=== PATIENT | female | born 1995 | race Caucasian/White ===

== ENCOUNTER 2017-09-20 14:19 | Emergency (ER) | payer MEDICAID, SELFPAY | END 2017-09-20 16:42 | disposition left against medical advice (07) | PROVIDERS: Emergency Provider Nurse Practitioner Family; Family Provider Physician Assistant; PCP Physician Assistant | DX: Z53.29 Procedure and treatment not carried out because of patient's decision for other reasons (principal) ==

== ENCOUNTER 2017-09-24 18:45 | Emergency (ER) | payer MEDICAID, SELFPAY ==
[2017-09-24 19:41] VITALS: BP 138/87; PULSE 81; RESP 20; TEMP 37; O2SAT 97; BMI 49.8
--- NOTE | 2017-09-24 20:00 | HMH.EDUTC ---
[facility] [place] Clinical Impression: Upper respiratory infection Qualifiers: URI type: unspecified URI Qualified Code(s): J06.9 - Acute upper respiratory infection, unspecified Disposition: Home, Self-Care Condition on Discharge: Good Instructions: Cough, Sinus Headache, DI for Headache Additional Instructions: * Monitor Temp. Tylenol and/or Ibuprofen as needed. ER if fever is no less than 101 despite alternating Tylenol and Ibuprofen * Encourage fluids, water, Gatorade, powerade, pedialyte if infant/toddler/or child * Warm salt water gargles for throat irritation *Warm fluids *Sore throat lozenges *Sleep elevated *humidifier or vaporizer Lots of rest Increase fluids, water, Gatorade, powerade Follow up IMMEDIATELY for new or worsening of symptoms OR no noticeable improvement over the next 48-72 hours. 911 immediately for any life threatening symptoms such as chest pain or difficulty breathing Prescriptions: Dextromethorphan Polistirex [Delsym] 10 ml PO Q12H PRN #200 joe.er.12h PRN Reason: Cough Referrals: Vonda Gonsalves PA [Primary Care Provider] - Time of Disposition: 20:17 Medical Decision Making Vital Signs: 09/24/17 19:41 Temperature 98.6 F Temperature Source Temporal Artery Scan Pulse Rate [Left Brachial] 81 Respiratory Rate 20 Blood Pressure [Left Arm] 138/87 Blood Pressure Mean [Left Arm] 104 Blood Pressure Source [Left Arm] Automatic Cuff Blood Pressure Position [Left Arm] Sitting 02 Sat by Pulse Oximetry 97 Oxygen Delivery Method Room Air - Yonathan Inquiry Pt receiving controlled substance: No Yonathan was queried for this patient: No [facility] [place] - General Stated complaint: CARR Mode of Arrival: Ambulatory Source of Information: Patient Limitations: No Limitations Description of Symptoms (Recalled from Triage Doc. by RN): C/O COUGH, CARR. DENIES ANY OTHER SYMPTOMS HEENT Symptoms (Recalled from RN notes): Yes (CARR) Resp Symptoms (Recalled from RN notes): Yes (COUGH) Skin Symptoms (Recalled from RN notes): No MS Symptoms (Recalled from RN notes): No Functional Status (Recalled from RN notes): N/A - History of Present Illness Provider Complaint: Patient state that she has been having sinus pain and pressure State that she has had a bad cough and when she coughs it makes her head hurt States that when she bend over her head hurts worse also and thinks she may have a sinus infection - Related Data Previous Rx's Medication Instructions Recorded Dextromethorphan Polistirex 10 ml PO Q12H PRN #200 joe.er.12h 09/24/17 [Delsym] Allergies Allergy/AdvReac Type Severity Reaction Status Date / Time labetalol [LABETALOL] Allergy Unknown I-ITCHING Verified 09/24/17 19:45 - Worker's Comp Is this a Worker's Comp case?: No [facility] History I have reviewed the patient's past medical history: Yes Medical History: Denies:: Cancer, Diabetes Mellitus Type 1, Diabetes Mellitus Type 2, MRSA Amputation: No Fractures: No - *Social History Smoking Status: Current every day smoker Tobacco Type: cigarettes Alcohol Intake: never - Psychiatric History Expresses thoughts of harming self/others: None Suicide Plan Description: No Plan ROS Obtained: Yes All systems reviewed & no additional complaints - Constitutional Constitutional: Reports fever(s) - ENT Ears, Nose, Mouth, and Throat: Reports sinus pain, Reports sinus pressure - Respiratory Respiratory: Yes cough Physical Exam - General General appearance: alert, in no apparent distress - Expanded ENT Exam Nose exam: Present: sinus tenderness - Respiratory Respiratory exam: Present: normal lung sounds bilaterally. Absent: respiratory distress - Cardiovascular Cardiovascular exam: Present: regular rate, normal rhythm. Absent: JVD - Neurological Exam Neurological exam: Present: alert, oriented X3
== END 2017-09-24 20:52 | disposition home or self-care (01) ==
PROVIDERS: Emergency Provider Nurse Practitioner; Family Provider Physician Assistant; PCP Physician Assistant
DX: J06.9 Acute upper respiratory infection, unspecified (principal); F17.210 Nicotine dependence, cigarettes, uncomplicated; Z88.8 Allergy status to other drugs, medicaments and biological substances
CPT/HCPCS: 96372; 99202

== ENCOUNTER → 2017-12-31 15:26 | Outpatient (REF) | payer MEDICAID, SELFPAY ==
[2017-12-31 18:32] LABS: Basophils % 0.4 % (0.1-2.0); Eosinophils # 0.1 K/mm3 (0.0-0.4); Hematocrit 43.6 % (37.0-47.0); Hemoglobin 14.2 g/dL (12.2-16.2); Lymphocytes # 2.1 K/mm3 (0.7-4.5); Lymphocytes % 29.9 K/mm3 (10-50); Mean Corpuscular HGB Conc 32.7 g/dL (31.8-35.4); Mean Corpuscular Volume 85.9 fl (81-99); Mean Platelet Volume 9.1 fl (7.4-10.4); Monocytes # 0.6 K/mm3 (0.1-1.0); Monocytes % 7.7 % (1.7-9.3); Neutrophils # 4.2 K/mm3 (1.8-7.8); Platelet Count 237 K/mm3 (142-424); Red Blood Count 5.08 M/mm3 (4.20-5.40); Red Cell Distribution Width 12.5 % (11.5-17.5); White Blood Count 7.1 K/mm3 (4.8-10.8)
[2017-12-31 19:17] LABS: Hemoglobin A1C 5.5 % (0.0-7.0)
[2017-12-31 19:31] LABS: Alanine Aminotransferase 22 U/L (12-78); Albumin Level 3.5 gm/dL (3.4-5.0); Alkaline Phosphatase 115 U/L (46-116); Anion Gap 15.2 mEq/L (5-15); Aspartate Amino Transferase 14 U/L (15-37); Bilirubin,Total 0.2 mg/dL (0.2-1.0); Blood Urea Nitrogen 11 mg/dL (7-18); Calcium 8.9 mg/dL (8.5-10.1); Carbon Dioxide 23 mmol/L (21.0-32.0); Chloride 104 mmol/L (98-107); Chol/HDL Ratio 4.7 (1-3.5); Cholesterol 169 mg/dL (140-200); Creatinine,Serum 0.58 mg/dL (0.55-1.02); Estimated Glomerular Filt Rate 131 ml/min (>60); GFR (African American) 159 ML/MIN (>60); Globulin 3.5 gm/dl (1.3-3.2); Glucose 94 mg/dL (74-106); HDL Cholesterol 36 mg/dL (29-89); LDL Cholesterol 119 mg/dL (0-130); Potassium 4.2 mmoL/L (3.5-5.1); Sodium 138 mmol/L (136-145); T4 (Thyroxine) 9.4 ug/dl (4.7-13.3); Thyroid Stimulating Hormone 0.96 uIU/ml (0.358-3.740); Triglycerides 68 mg/dL (30-200); VLDL Cholesterol 14 mg/dL (0-40)
[2018-01-02 11:03] LABS: Vitamin D 25 Hydroxy 10.4 ng/mL (30.0-100.0)
== END ==
LOC: LAB 15:26
PROVIDERS: Visit Provider Physician Assistant
DX: R53.83 Other fatigue (principal); Z83.3 Family history of diabetes mellitus
CPT/HCPCS: 80053; 80061; 82652; 83036; 84436; 84443; 85025

== ENCOUNTER → 2018-05-28 08:58 | Outpatient (CLI) | payer MEDICAID, SELFPAY ==
--- NOTE | 2018-05-28 09:02 | XR_ITS ---
XR foot wt bearing LT 3V HISTORY: ITS.REASON: pain ORDERING PHYSICIAN: Nakia Loving DPM PATIENT AGE: 22 years COMPARISON: None FINDINGS: No fracture or dislocation. No lytic or blastic change. There is normal mineralization.. The joint spaces are well-preserved. No significant degenerative/arthritic changes. No erosive changes evident. IMPRESSION: Negative, no acute finding
--- NOTE | 2018-05-28 09:02 | XR_ITS ---
XR foot wt bearing RT 3V HISTORY: ITS.REASON: pain ORDERING PHYSICIAN: Nakia Loving DPM PATIENT AGE: 22 years COMPARISON: None FINDINGS: No fracture or dislocation. No lytic or blastic change. There is normal mineralization.. The joint spaces are well-preserved. No significant degenerative/arthritic changes. No erosive changes evident. A 5 mm rectangular-shaped density is noted within the soft tissues along the lateral dorsal aspect of the calcaneus as seen on the oblique view but not really identified on the additional views and may be due to foreign body. The AP view there is a lucency noted along the neck of the talus at 4 mm also not identified on the additional views. IMPRESSION: 1. Soft tissue density along the dorsal and lateral aspect of the calcaneus suggesting foreign body not readily apparent on additional views. 2. Lucency overlying the mid aspect of the talus suggesting a benign-appearing cyst
[2018-05-28 11:28] LABS: Basophils % 0.3 % (0.1-2.0); Eosinophils # 0.1 K/mm3 (0.0-0.4); Hematocrit 42.5 % (37.0-47.0); Lymphocytes # 1.9 K/mm3 (0.7-4.5); Lymphocytes % 27.1 K/mm3 (10-50); Mean Corpuscular HGB Conc 32.9 g/dL (31.8-35.4); Mean Corpuscular Hemoglobin 27.7 pg (27.0-31.2); Mean Corpuscular Volume 84.1 fl (81-99); Mean Platelet Volume 7.7 fl (7.4-10.4); Monocytes # 0.4 K/mm3 (0.1-1.0); Monocytes % 5.3 % (1.7-9.3); Neutrophils # 4.5 K/mm3 (1.8-7.8); Neutrophils % 65.3 % (37.0-80.0); Platelet Count 225 K/mm3 (142-424); Red Blood Count 5.05 M/mm3 (4.20-5.40); Red Cell Distribution Width 13.2 % (11.5-17.5); White Blood Count 6.9 K/mm3 (4.8-10.8)
[2018-05-28 12:24] LABS: Alanine Aminotransferase 26 U/L (12-78); Albumin Level 3.5 gm/dL (3.4-5.0); Albumin/Globulin Ratio 1.1 (1.1-1.8); Alkaline Phosphatase 109 U/L (46-116); Anion Gap 11.4 mEq/L (5-15); Aspartate Amino Transferase 13 U/L (15-37); Bilirubin,Total 0.3 mg/dL (0.2-1.0); Blood Urea Nitrogen 11 mg/dL (7-18); Calcium 8.5 mg/dL (8.5-10.1); Carbon Dioxide 28 mmol/L (21.0-32.0); Chloride 106 mmol/L (98-107); Chol/HDL Ratio 4.4 (1-3.5); Cholesterol 160 mg/dL (140-200); Creatinine,Serum 0.62 mg/dL (0.55-1.02); Estimated Glomerular Filt Rate 122 ml/min (>60); GFR (African American) 147 ML/MIN (>60); Globulin 3.3 gm/dl (1.3-3.2); Glucose 93 mg/dL (74-106); HDL Cholesterol 36 mg/dL (29-89); LDL Cholesterol 109 mg/dL (0-130); Potassium 4.4 mmoL/L (3.5-5.1); Sodium 141 mmol/L (136-145); T4 (Thyroxine) 8.9 ug/dl (4.7-13.3); Thyroid Stimulating Hormone 1.05 uIU/ml (0.358-3.740); Total Protein,Serum 6.8 gm/dL (6.4-8.2); Triglycerides 73 mg/dL (30-200); VLDL Cholesterol 15 mg/dL (0-40)
[2018-05-31 23:06] LABS: 1,25-Dihydroxy, Vitamin D-2 <10 pg/mL (.)
[2018-06-01 05:22] LABS: Vitamin B12 325 pg/mL (232-1245)
[2018-06-01 05:25] LABS: 1,25 Dihydroxy Vitamin D 37 pg/mL (.); 1,25-Dihydroxy, Vitamin D-3 34 pg/mL (.)
== END ==
PROVIDERS: Nurse Practitioner Family; PCP Emergency Medicine; Visit Provider Podiatrist
DX: M79.672 Pain in left foot (principal); M79.671 Pain in right foot; R53.83 Other fatigue
CPT/HCPCS: 36415; 73630; 80053; 80061; 82607; 82652; 84436; 84443; 85025

== ENCOUNTER → 2019-10-08 13:45 | Outpatient (CLI) | payer MEDICAID, SELFPAY ==
[2019-10-08 15:12] LABS: HCG Qualitative, Serum Positive (Negative)
== END ==
PROVIDERS: Visit Provider Nurse Practitioner Family
DX: N92.6 Irregular menstruation, unspecified (principal)
CPT/HCPCS: 36415; 84703

== ENCOUNTER → 2019-11-03 14:33 | Outpatient (CLI) | payer MEDICAID, SELFPAY ==
[2019-11-03 16:49] LABS: Basophils % 0.2 % (0.1-2.0); Eosinophils # 0.1 K/mm3 (0.0-0.4); Eosinophils % 0.5 % (0.1-12.0); Hematocrit 38.7 % (37.0-47.0); Hemoglobin 12.6 g/dL (12.2-16.2); Lymphocytes # 1.6 K/mm3 (0.7-4.5); Lymphocytes % 16.3 % (10-50); Mean Corpuscular HGB Conc 32.5 g/dL (31.8-35.4); Mean Corpuscular Hemoglobin 28.4 pg (27.0-31.2); Mean Corpuscular Volume 87.2 fl (81-99); Mean Platelet Volume 8.7 fl (7.4-10.4); Monocytes # 0.4 K/mm3 (0.1-1.0); Monocytes % 4.4 % (1.7-9.3); Neutrophils # 7.5 K/mm3 (1.8-7.8); Neutrophils % 78.6 % (37.0-80.0); Platelet Count 213 K/mm3 (142-424); Red Blood Count 4.44 M/mm3 (4.20-5.40); Red Cell Distribution Width 13.1 % (11.5-17.5); White Blood Count 9.5 K/mm3 (4.8-10.8)
[2019-11-05 06:51] LABS: HIV Screen 4th Generation wRfx Non Reactive (Non Reactive)
[2019-11-05 10:36] LABS: Hepatitis B Surface Antigen Negative (Negative); Hepatitis C Antibody <0.1 s/co ratio (0.0-0.9); Rubella Antibodies, IgG 2.04 index (Immune >0.99)
[2019-11-05 12:02] LABS: Rapid Plasma Reagin Ab Titer Non Reactive (NonRea<1:1)
== END ==
PROVIDERS: Visit Provider Nurse Practitioner Obstetrics & Gynecology
DX: Z34.90 Encounter for supervision of normal pregnancy, unspecified, unspecified trimester (principal)
CPT/HCPCS: 36415; 85025; 86592; 86703; 86762; 86850; 87340; 87380; G0432

== ENCOUNTER → 2019-11-05 12:37 | Outpatient (CLI) | payer MEDICAID, SELFPAY ==
--- NOTE | 2019-11-05 12:38 | US_ITS ---
PROCEDURE: US OB TRANSVAGINAL CLINICAL INDICATION: Dates before 12 weeks COMPARISON: No exams were available for comparison FINDINGS: An intrauterine gestational sac is present with a pole with a crown-rump length of 2.14cm correlating to gestational age of 8 weeks 6 days. heart tones are present with an FHR of 167bpm. Yolk sac is noted. Ovaries are within normal limits. IMPRESSION: Living intrauterine gestation at 8 weeks 6 days Estimated due date by Ultrasound is 06/15/2020 Dictated by: Donald Porter 11/05/2019 15:28 Electronically signed by Donald Porter in OV 11/05/2019 15:28
== END ==
PROVIDERS: PCP Nurse Practitioner Family; Visit Provider Nurse Practitioner Obstetrics & Gynecology
DX: O26.841 Uterine size-date discrepancy, first trimester (principal)
CPT/HCPCS: 76817

== ENCOUNTER 2020-03-28 18:46 | Emergency (ER) | payer MEDICAID, SELFPAY ==
[2020-03-28 18:55] VITALS: BP 110/98; PULSE 101; RESP 18; O2SAT 96; BMI 56.5
[2020-03-28 19:17] VITALS: BP 110/98; PULSE 101; RESP 18; TEMP 36.7; O2SAT 96; BMI 56.6
--- NOTE | 2020-03-28 19:31 | HMH.EDUTC ---
[facility] [place] Disposition Clinical Impression: Strep throat, Viral syndrome Disposition: Home, Self-Care Condition on Discharge: Good Instructions: Strep Throat, DI for Strep Throat Additional Instructions: Drink plenty of fluids. Take tylenol or ibuprofen for pain or fever. Take the medications as directed. Follow up with your regular doctor. GO TO THE ER FOR ANY WORSENING SYMPTOMS Referrals: Brielle Huggisn APRN [Primary Care Provider] - Forms: Work/School Release Time of Disposition: 19:55 Medical Decision Making - Medical Records Medical records reviewed: No: I reviewed the patient's medical records. - Yonathan Inquiry Pt receiving controlled substance: No Vital Signs: 03/28/20 18:55 03/28/20 19:17 03/28/20 19:56 Temperature 98.1 F 98.1 F Temperature Source Oral Pulse Rate 101 H Pulse Rate [Radial] 101 H 101 H Respiratory Rate 18 18 18 Blood Pressure 110/98 H Blood Pressure [Right Arm] 110/98 H 110/98 H Blood Pressure Mean [Right Arm] 102 102 Blood Pressure Source [Right Arm] Automatic Cuff Automatic Cuff Blood Pressure Position [Right Arm] Sitting Sitting 02 Sat by Pulse Oximetry 96 96 Oxygen Delivery Method Room Air Room Air Orders (Tests/Meds): ORDERS Category Date Time Status SARS-CoV-2, DAVID Stat Lab 03/28/20 19:45 Received [facility] [place] HPI - General Stated complaint: 29 wk preg sore throat,cough. Time Seen by Provider: 03/28/20 19:31 Mode of Arrival: Ambulatory Source of Information: Patient Limitations: No Limitations Description of Symptoms (Recalled from Triage Doc. by RN): States she was seen yesterday at [facility] and was diagnosed with Strep. States that her side is sore from coughing and she has a headache. Patient is 29 weeks . was prescribed PCN HEENT Symptoms (Recalled from RN notes): Yes Resp Symptoms (Recalled from RN notes): Yes Skin Symptoms (Recalled from RN notes): No MS Symptoms (Recalled from RN notes): No Functional Status (Recalled from RN notes): WNL - History of Present Illness Provider Complaint: She states that she was diagnosed with strep throat yesterday at [facility]. She was started on oral pcn. She states that she started her medicine yesterday evening, but she is not feeling any better yet. She is also having nausea and a cough. - Related Data Home Medications Medication Instructions Recorded Confirmed prenat.vits,janiya,dvv-shax-oiydh 1 tab PO DAILY 11/03/19 03/28/20 Buspirone HCl [Buspar 10mg 10 mg PO BID 03/28/20 03/28/20 tablet] Penicillin V Potassium 500 mg PO TID 03/28/20 03/28/20 Allergies Allergy/AdvReac Type Severity Reaction Status Date / Time labetalol [LABETALOL] Allergy Unknown I-ITCHING Verified 12/01/19 14:13 - Worker's Comp Is this a Worker's Comp case?: No [facility] History - Hepatitis A Screen Drug use history?: No High risk sexual behaviors?: No History of sexually transmitted infection?: No Currently employed?: No Childcare worker?: No Do you have indoor plumbing?: Yes Do you have electricity?: Yes Attestation statement:: This patient has been screened for Hepatitis A risk factors. I have reviewed the patient's past medical history: Yes Medical History: Reports:: Anxiety, Depression Denies:: Cancer, Diabetes Mellitus Type 1, Diabetes Mellitus Type 2, MRSA Comment: Declines influenza vaccination. Other Surgeries: Yes: No Previous Surgery, Amputation: No Fractures: No - Social History Smoking Status: Current every day smoker Tobacco Type: cigarettes # Packs/Day (cigarettes): 1 Alcohol Intake: never Alcohol Intake Frequency:: other Substance Use Type: denies use Occupational Status: other Housing: apartment Household Members: children - Psychiatric History Pschychiatric History:: Reports:: Anxiety, Depression Family Hx:: Cancer, Diabetes ROS Obtained: Yes All systems reviewed & no additional complaints - Constitutional Constitutional: Reports chil
[2020-03-28 19:56] VITALS: BP 110/98; PULSE 101; RESP 18; TEMP 36.7; O2SAT 96
[2020-03-30 14:42] LABS: Covid-19 Nasal PCR Sendout Lex Not Detected
== END 2020-03-28 20:01 | disposition home or self-care (01) ==
PROVIDERS: Emergency Provider Nurse Practitioner Family; PCP Nurse Practitioner Family
DX: J02.0 Streptococcal pharyngitis (principal); B34.9 Viral infection, unspecified; Z3A.29 29 weeks gestation of pregnancy; F17.210 Nicotine dependence, cigarettes, uncomplicated; F41.8 Other specified anxiety disorders; Z88.8 Allergy status to other drugs, medicaments and biological substances
CPT/HCPCS: 99201; U0004

== ENCOUNTER → 2020-04-13 10:46 | Outpatient (CLI) | payer MEDICAID, SELFPAY ==
[2020-04-18 09:17] LABS: QuantiFERON-TB Gold Plus Negative (Negative)
== END ==
PROVIDERS: Visit Provider Student in an Organized Health Care Education/Training Program
DX: O09.90 Supervision of high risk pregnancy, unspecified, unspecified trimester (principal)
CPT/HCPCS: 36415; 86480

== ENCOUNTER → 2021-02-09 10:51 | Outpatient (CLI) | payer MEDICAID, SELFPAY ==
--- NOTE | 2021-02-09 10:55 | CA_ITS ---
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: Anushka Rodriguez RVT Ht: 5 ft 5 in Wt: 342lbs BSA: 2.48 BP: 163/101 mmHg Indications: SOA,ABN EKG,SMOKER,OBESITY,PALPS,TACHY TDS-PT BODY HABITUS 2D Dimensions LVOT 2.02 cm (M/F) 1.5-2.5 LA Volume 23.10 mL LA Volume Index 9.31 mL/m2 (M/F) 16-34 M-Mode Dimensions RVDd 2.41 cm (0.9-2.6) LA Diam 4.10 cm (1.9-4.0) LVDd 5.12 cm (3.5-5.7) Ao Diam 2.86 cm (2.0-3.7) LVDs 3.21 cm (3.5-5.7) IVSd 1.00 cm (0.6-1.1) PWd 0.64 cm (0.6-1.1) EF (Teich) 66.90% FS 37.30% EDV (Teich) 124.90 mL TAPSE 1.84 (<1.7) ESV (Teich) 41.30 mL LV Diastology E Decel Time 150.00 (160-240 msec) E/A Ratio 1.8 MED E' 10.20 (< 7 cm/sec) E'/MED E' Ratio 8.33 (>14) LAT E' 16.20 (<10 cm/sec) E/LAT E' Ratio 5.25 (>14) Aortic Valve AO Peak GR. 6.30 mmHg Mitral Valve MV E Max Loki. 85.00 (40-130 cm/s) MV A Velocity 48.00 (40-130 cm/s) E/A Ratio 1.76 MV Decel. Time 150.00 (160-240 ms) MV PHT 44.00 ms Pulmonary Valve PV Peak Velocity 88.00 (50-150 cm/s) Tricuspid Valve TR P. Velocity 175.00 cm/s RAP Estimate 10.00 mmHg RVSP 22.30 mmHg Left Ventricle Left atrium is normal size, left ventricle is normal size, there is no concentric left ventricular hypertrophy, visually estimated ejection fraction 55% with no regional wall motion abnormality, diastolic parameters are within normal range. Right Ventricle Right atrium and right ventricle are normal size and contractility. Aortic Valve Aortic valve is normal, there is no aortic stenosis or aortic insufficiency. Mitral Valve Mitral valve grossly normal, there is no mitral regurgitation. Tricuspid Valve Tricuspid grossly normal, there is trace tricuspid regurgitation, tricuspid regurgitation jet velocity is inadequate for calculation of the right ventricular systolic pressure. Pulmonic Valve Pulmonic valve is poorly visualized. Great Vessels Aortic root is normal size. Pericardium No significant pericardial effusion noted. Conclusion 1. Normal left ventricular size, preserved left ventricular systolic function, visually estimated ejection fraction 55% with no regional wall motion abnormality, diastolic parameters are within normal range. 2. Trace tricuspid regurgitation. 3. No significant pericardial effusion noted. Electronically signed by : Anirudh Crabtree, 02/09/2021 14:39:38
== END ==
PROVIDERS: PCP Nurse Practitioner Family; Visit Provider Internal Medicine Cardiovascular Disease
DX: R00.2 Palpitations (principal); R00.0 Tachycardia, unspecified; R94.31 Abnormal electrocardiogram [ECG] [EKG]; E66.01 Morbid (severe) obesity due to excess calories; F17.200 Nicotine dependence, unspecified, uncomplicated; R40.0 Somnolence; Z68.43 Body mass index [BMI] 50.0-59.9, adult
CPT/HCPCS: 93306

== ENCOUNTER → 2021-03-06 19:07 | Outpatient (CLI) | payer MEDICAID, SELFPAY | PROVIDERS: Visit Provider Nurse Practitioner Family | DX: Z20.822 Contact with and (suspected) exposure to COVID-19 (principal) | CPT/HCPCS: U0003 ==

== ENCOUNTER → 2021-04-17 21:01 | Outpatient (CLI) | payer MEDICAID, SELFPAY | PROVIDERS: Visit Provider Nurse Practitioner Family | DX: Z11.52 Encounter for screening for COVID-19 (principal) | CPT/HCPCS: U0003 ==

== ENCOUNTER → 2021-04-30 11:51 | Outpatient (CLI) | payer MEDICAID, SELFPAY | PROVIDERS: PCP Nurse Practitioner Family; Visit Provider Nurse Practitioner Family | DX: Z20.822 Contact with and (suspected) exposure to COVID-19 (principal) | CPT/HCPCS: U0003 ==

== ENCOUNTER → 2021-05-25 10:42 | Outpatient (CLI) | payer MEDICAID, SELFPAY | PROVIDERS: Visit Provider Nurse Practitioner Family | DX: Z20.822 Contact with and (suspected) exposure to COVID-19 (principal); J02.9 Acute pharyngitis, unspecified | CPT/HCPCS: C9803; U0003; U0005 ==

== ENCOUNTER → 2021-07-13 17:26 | Outpatient (CLI) | payer MEDICAID, SELFPAY | PROVIDERS: PCP Nurse Practitioner Family; Visit Provider Internal Medicine Cardiovascular Disease | DX: R00.0 Tachycardia, unspecified (principal); R00.2 Palpitations; R94.31 Abnormal electrocardiogram [ECG] [EKG]; R40.0 Somnolence; E66.01 Morbid (severe) obesity due to excess calories; F17.200 Nicotine dependence, unspecified, uncomplicated; Z68.43 Body mass index [BMI] 50.0-59.9, adult | CPT/HCPCS: 95806 ==

== ENCOUNTER → 2021-09-09 17:15 | Outpatient (CLI) | payer MEDICAID, SELFPAY | PROVIDERS: PCP Nurse Practitioner Family; Visit Provider Nurse Practitioner Family | DX: Z20.822 Contact with and (suspected) exposure to COVID-19 (principal) | CPT/HCPCS: C9803; U0003; U0005 ==

== ENCOUNTER → 2021-09-12 14:38 | Outpatient (CLI) | payer MEDICAID, SELFPAY | PROVIDERS: Visit Provider Nurse Practitioner | DX: Z20.822 Contact with and (suspected) exposure to COVID-19 (principal) | CPT/HCPCS: C9803; U0003; U0005 ==

== ENCOUNTER → 2021-09-15 15:15 | Outpatient (CLI) | payer MEDICAID, SELFPAY | PROVIDERS: PCP Nurse Practitioner Family; Visit Provider Nurse Practitioner Family | DX: U07.1 COVID-19 (principal) | CPT/HCPCS: C9803; U0003; U0005 ==

== ENCOUNTER 2021-11-16 09:17 | Emergency (ER) | payer MEDICAID, SELFPAY ==
[2021-11-16 09:45] VITALS: BP 137/74; PULSE 82; RESP 18; TEMP 36.6; O2SAT 99; BMI 55.1
[2021-11-16 10:02] LABS: UTC Strep Screen (Rapid) Negative (Negative)
--- NOTE | 2021-11-16 10:14 | HMH.EDUTC ---
[facility] [place] Disposition Clinical Impression: Nausea & vomiting Qualifiers: Vomiting type: unspecified Qualified Code(s): R11.2 - Nausea with vomiting, unspecified Disposition: Home, Self-Care Condition on Discharge: Good Instructions: Sore Throat, DI for Vomiting -- Adult, Nausea and Vomiting-Adult Additional Instructions: *Monitor Temp, Over the counter Motrin or Tylenol as directed/as needed Tylenol every 4 hours and Motrin every 6 hours (as long as your family doctor has told you that you can take it) for fever or pain. and straight to ER if unable to lower temp less than 101.0 after medication given *Warm salt water gargles may help to soothe the throat *Throat Lozenges *Warm fluids like tea with honey may help to soothe the throat *Sleep elevated *Humidifier/Vaporizer *If you did not take Penicillin shot or was unable to, start taking antibiotic immediately and make sure that you take it for the FULL length of time although you should start to feel better in 24-48 hours *change toothbrush and toothpaste 24-48 hours after starting to take antibiotics so you do not reinfect yourself Monitor Temp. Tylenol and/or Ibuprofen as needed. ER if fever is no less than 101 despite alternating Tylenol and Ibuprofen * Encourage fluids, water, Gatorade, powerade, pedialyte if /toddler/or child *Cold fluids, popsicles and ice cream may feel good on his throat Follow up IMMEDIATELY for new or worsening symptoms or no Noticeable improvement over the next 48-72 hours. 911 for difficulty breathing or swallowing Prescriptions: Ondansetron [Zofran 4mg ODT] 4 mg PO TIDP PRN #6 tab PRN Reason: Vomiting Transmission Status: Pending to [id number] Referrals: Brielle Huggins APRN [Primary Care Provider] - As needed Time of Disposition: 10:44 Medical Decision Making - Yonathan Inquiry Pt receiving controlled substance: No Yonathan was queried for this patient: No Vital Signs: 11/16/21 09:45 Temperature 97.9 F Temperature Source Oral Pulse Rate [Right Brachial] 82 Respiratory Rate 18 Blood Pressure [Right Arm] 137/74 Blood Pressure Mean [Right Arm] 95 Blood Pressure Source [Right Arm] Automatic Cuff Blood Pressure Position [Right Arm] Sitting 02 Sat by Pulse Oximetry 99 Oxygen Delivery Method Room Air - Lab Data Lab results reviewed: Yes: I reviewed the patient's lab results. Lab Results 11/16/21 09:46: Strep Scn Rapid Clinic Negative 11/16/21 10:18: Tst Clinic Negative Orders (Tests/Meds): ORDERS Category Date Time Status Strep Screen Confirmation Stat Micro 11/16/21 09:46 Received [facility] [place] HPI - General Stated complaint: sore throat, vomiting Time Seen by Provider: 11/16/21 10:14 Mode of Arrival: Ambulatory Source of Information: Patient Limitations: No Limitations Description of Symptoms (Recalled from Triage Doc. by RN): PATIENT C/O SORE THROAT AND VOMITING HEENT Symptoms (Recalled from RN notes): Yes Resp Symptoms (Recalled from RN notes): No Skin Symptoms (Recalled from RN notes): No MS Symptoms (Recalled from RN notes): No Functional Status (Recalled from RN notes): WNL - History of Present Illness Provider Complaint: Patient state that she has been having sore throat and vomiting State that her kids and has had a stomach bug States that she was worried that she may have strep throat so she came in to get checked out - Related Data Home Medications Medication Instructions Recorded Confirmed levonorgestrel 20 mcg/24 hours (7 INTRAUTERI 05/25/21 09/13/21 yrs) 52 mg intrauterine device Previous Rx's Medication Instructions Recorded bisoprolol fumarate 5 mg tablet 5 mg PO DAILY #90 tab 07/05/21 fluoxetine 20 mg capsule 20 mg PO DAILY #30 cap 07/31/21 Ondansetron [Zofran 4mg ODT] 4 mg PO TIDP PRN #6 tab 11/16/21 Allergies Allergy/AdvReac Type Severity Reaction Status Date / Time labetalol [LABETALOL] Allergy Unknown I-ITCHING Verified 09/13/21 11:
[2021-11-16 10:24] LABS: UTC Pregnancy Test, Urine Negative (Negative)
[2021-11-16 10:49] VITALS: BP 137/74; PULSE 82; RESP 18; TEMP 36.6; O2SAT 99
== END 2021-11-16 10:52 | disposition home or self-care (01) ==
PROVIDERS: Emergency Provider Nurse Practitioner; PCP Nurse Practitioner Family
DX: J02.9 Acute pharyngitis, unspecified (principal); R11.2 Nausea with vomiting, unspecified; F32.A Depression, unspecified; F41.9 Anxiety disorder, unspecified; F17.210 Nicotine dependence, cigarettes, uncomplicated; Z79.899 Other long term (current) drug therapy; Z88.8 Allergy status to other drugs, medicaments and biological substances; Z83.3 Family history of diabetes mellitus; Z79.3 Long term (current) use of hormonal contraceptives; Z80.9 Family history of malignant neoplasm, unspecified
CPT/HCPCS: 81025; 87880; 99213; G0463

== ENCOUNTER 2021-11-18 15:54 | Emergency (ER) | payer MEDICAID, SELFPAY ==
[2021-11-18 15:55] VITALS: BP 151/86; PULSE 100; RESP 19; TEMP 36.7; O2SAT 99; BMI 58.3
--- NOTE | 2021-11-18 16:12 | HMH.EDUTC ---
[facility] [place] Clinical Impression: Strep sore throat Disposition: Home, Self-Care Condition on Discharge: Good Instructions: DI for Strep Throat Additional Instructions: Start antibiotics today be sure to take it as ordered with the full length of time although you should start feeling better in 24-48 hours. Change toothbrush and toothpaste 24-48 hours after starting antibiotics Tylenol or Motrin as needed for fever or pain Encourage fluids, water, Gatorade, Powerade, try cold fluids, popsicles, ice cream will make it feel better You are contagious for 24 hours. Avoid kissing anyone, no eating or drinking after anyone. You are contagious. Follow-up the ER for new or worsening symptoms or no noticeable improvement over the next 24-48 hours. Follow-up with PCP this week. Prescriptions: Azithromycin [Zithromax 250mg tab] 250 mg PO DIRECTED #6 tab Transmission Status: Pending to [id number] Referrals: Brielle Huggins APRN [Primary Care Provider] - Time of Disposition: 16:19 Medical Decision Making - Yonathan Inquiry Pt receiving controlled substance: No [facility] [place] HPI - General Chief complaint: [facility] Stated complaint: sore throat, CARR, Neck and ear pain Time Seen by Provider: 11/18/21 16:12 Mode of Arrival: Ambulatory Source of Information: Patient Limitations: No Limitations - History of Present Illness Provider Complaint: 26 yr old female presents for sore throat and pain with swallowing since thurs - Related Data Home Medications Medication Instructions Recorded Confirmed levonorgestrel 20 mcg/24 hours (7 INTRAUTERI 05/25/21 09/13/21 yrs) 52 mg intrauterine device Previous Rx's Medication Instructions Recorded bisoprolol fumarate 5 mg tablet 5 mg PO DAILY #90 tab 07/05/21 fluoxetine 20 mg capsule 20 mg PO DAILY #30 cap 07/31/21 Ondansetron [Zofran 4mg ODT] 4 mg PO TIDP PRN #6 tab 11/16/21 Azithromycin [Zithromax 250mg 250 mg PO DIRECTED #6 tab 11/18/21 tab] Allergies Allergy/AdvReac Type Severity Reaction Status Date / Time labetalol [LABETALOL] Allergy Unknown I-ITCHING Verified 09/13/21 11:46 [facility] History - Hepatitis A Screen Attestation statement:: This patient has been screened for Hepatitis A risk factors. I have reviewed the patient's past medical history: Yes Medical History: Reports:: Anxiety, Depression, Hypertension Denies:: Cancer, Diabetes Mellitus Type 1, Diabetes Mellitus Type 2, MRSA Comment: Declines influenza vaccination. Other Surgeries: Yes: No Previous Surgery, Amputation: No Fractures: No - Social History Smoking Status: Current every day smoker Tobacco Type: cigarettes # Packs/Day (cigarettes): 1 Alcohol Intake: never Alcohol Intake Frequency:: other Substance Use Type: denies use Occupational Status: other Housing: apartment Household Members: children - Psychiatric History Pschychiatric History:: Reports:: Anxiety, Depression Family Hx:: Diabetes, Cancer ROS Obtained: Yes Systems reviewed as appropriate & no additional complaints - Constitutional Constitutional: Reports system reviewed and no additional complaints, except as docu, Denies fatigue - Eyes Eyes: Reports system reviewed and no additional complaints, except as docu, Denies blurry vision - ENT Ears, Nose, Mouth, and Throat: Reports system reviewed and no additional complaints, except as docu, Reports sore throat - Cardiovascular Cardiovascular: Reports system reviewed and no additional complaints, except as docu, Denies chest pain - Respiratory Respiratory: Reports system reviewed and no additional complaints, except as docu, Denies change in phlegm color - Gastrointestinal Gastrointestingal: Reports: system reviewed and no additional complaints, except as docu. Denies: abdominal pain - Musculoskeletal Musculoskeletal: Reports system reviewed and no additional complaints, except as docu, Denies joint pain - Integum
[2021-11-18 16:14] LABS: UTC Strep Screen (Rapid) Positive (Negative)
[2021-11-18 16:20] VITALS: BP 151/86; PULSE 100; RESP 19; TEMP 36.7; O2SAT 99
== END 2021-11-18 16:24 | disposition home or self-care (01) ==
PROVIDERS: Emergency Provider Nurse Practitioner Family; PCP Nurse Practitioner Family
DX: J02.0 Streptococcal pharyngitis (principal); B95.0 Streptococcus, group A, as the cause of diseases classified elsewhere; R00.2 Palpitations; R94.31 Abnormal electrocardiogram [ECG] [EKG]; R00.1 Bradycardia, unspecified; H92.09 Otalgia, unspecified ear; M54.2 Cervicalgia; R51.9 Headache, unspecified; I10 Essential (primary) hypertension; E55.9 Vitamin D deficiency, unspecified; R40.0 Somnolence; E66.9 Obesity, unspecified; F32.A Depression, unspecified; F41.9 Anxiety disorder, unspecified; F17.210 Nicotine dependence, cigarettes, uncomplicated; Z79.899 Other long term (current) drug therapy; Z88.8 Allergy status to other drugs, medicaments and biological substances; Z68.43 Body mass index [BMI] 50.0-59.9, adult; Z83.3 Family history of diabetes mellitus; Z80.9 Family history of malignant neoplasm, unspecified
CPT/HCPCS: 87880; 99213; G0463

== ENCOUNTER → 2022-02-04 12:03 | Outpatient (CLI) | payer MEDICAID, SELFPAY ==
[2022-02-04 19:24] LABS: Basophils # 0.1 K/mm3 (0-0.2); Basophils % 1.1 % (0.1-2.0); Eosinophils # 0.1 K/mm3 (0.0-0.4); Eosinophils % 0.9 % (0.1-12.0); Hematocrit 44.1 % (37.0-47.0); Hemoglobin 14.6 g/dL (12.2-16.2); Lymphocytes # 2.1 K/mm3 (0.7-4.5); Lymphocytes % 21.9 % (10-50); Mean Corpuscular HGB Conc 33.1 g/dL (31.8-35.4); Mean Corpuscular Hemoglobin 28.4 pg (27.0-31.2); Mean Corpuscular Volume 85.6 fl (81-99); Mean Platelet Volume 8.9 fl (7.4-10.4); Monocytes # 0.4 K/mm3 (0.1-1.0); Monocytes % 4.1 % (1.7-9.3); Neutrophils # 6.8 K/mm3 (1.8-7.8); Platelet Count 293 K/mm3 (142-424); Red Blood Count 5.15 M/mm3 (4.20-5.40); Red Cell Distribution Width 13.9 % (11.5-17.5); White Blood Count 9.5 K/mm3 (4.8-10.8)
[2022-02-04 19:33] LABS: Alanine Aminotransferase 23 U/L (12-78); Albumin Level 3.9 g/dl (3.5-5.0); Albumin/Globulin Ratio 1.4 (1.1-1.8); Alkaline Phosphatase 118 U/L (38-126); Anion Gap 11.9 mEq/L (5-15); Aspartate Amino Transferase 23 U/L (14-36); Blood Urea Nitrogen 11 mg/dl (7-17); Calcium 8.8 mg/dl (8.4-10.2); Carbon Dioxide 26 mmol/L (22.0-30.0); Chloride 105 mmol/L (98-107); Chol/HDL Ratio 5.2 (1-3.5); Cholesterol 166 mg/dl (140-200); Estimated Glomerular Filt Rate 122 ml/min (>60); GFR (African American) 147 ML/MIN (>60); Globulin 2.8 g/dL (1.3-3.2); Glucose 153 mg/dl (74-100); HDL Cholesterol 32 mg/dl (40-60); Potassium 3.9 mmoL/L (3.5-5.1); Sodium 139 mmol/L (136-145); Total Protein,Serum 6.7 g/dl (6.3-8.2); Triglycerides 125 mg/dl (30-150); VLDL Cholesterol 25 mg/dL (0-40)
[2022-02-04 19:34] LABS: Bilirubin,Total < 0.1 mg/dl (0.2-1.3)
[2022-02-04 19:43] LABS: Direct LDL Cholesterol 123.74 mg/dL (100-129)
[2022-02-04 19:51] LABS: 25-OH Vitamin D, Total 15.1 ng/mL (30-100)
[2022-02-04 19:52] LABS: T4 (Thyroxine) 10.2 ug/dl (5.53-11.0)
[2022-02-04 20:05] LABS: Thyroid Stimulating Hormone 0.77 uIU/mL (0.465-4.68)
[2022-02-04 20:57] LABS: Hemoglobin A1C 5.5 % (4.0-6.0)
[2022-02-06 12:40] LABS: C-Peptide 16.9 ng/mL (1.1-4.4)
== END ==
PROVIDERS: PCP Nurse Practitioner Family; Visit Provider Nurse Practitioner Family
DX: E66.01 Morbid (severe) obesity due to excess calories (principal); E55.9 Vitamin D deficiency, unspecified; Z68.43 Body mass index [BMI] 50.0-59.9, adult
CPT/HCPCS: 80053; 80061; 82306; 83036; 84436; 84443; 84681; 85025

== ENCOUNTER → 2022-09-20 14:20 | Outpatient (CLI) | payer MEDICAID, SELFPAY | PROVIDERS: PCP Student in an Organized Health Care Education/Training Program; Visit Provider Student in an Organized Health Care Education/Training Program | DX: R35.89 Other polyuria (principal) | CPT/HCPCS: 87086 ==

== ENCOUNTER 2022-10-08 10:13 | Emergency (ER) | payer MEDICAID, SELFPAY ==
[2022-10-08 10:35] VITALS: RESP 20; TEMP 37.1; O2SAT 98; BMI 55.7
--- NOTE | 2022-10-08 10:41 | EXP.UTC ---
Discharge Plan Disposition Patient Disposition: Home, Self-Care Condition: Good Prescriptions Prescriptions: New phenazopyridine [Pyridium] 200 mg tablet 200 mg PO Q8H 2 Days Qty: 6 0RF ciprofloxacin HCl [Cipro] 500 mg tablet 500 mg PO BID 7 Days Qty: 14 0RF ondansetron 4 mg Tablet,Disintegrating 4 mg PO Q8H PRN (Reason: Nausea) Qty: 12 0RF No Action sulfamethoxazole-trimethoprim 800-160 mg tablet 1 tab PO BID Qty: 14 0RF Mirena 20 mcg/24 hours (6 yrs) 52 mg intrauterine device INTRAUTERI vilazodone [Viibryd] 40 mg tablet 40 mg PO DAILY Qty: 30 1RF Rx Instructions: must administer with a meal/food ergocalciferol (vitamin D2) 1,250 mcg (50,000 unit) capsule 50,000 unit PO QWEEK Qty: 14 0RF fluoxetine [Prozac] 20 mg capsule 20 mg PO DAILY Referrals Follow up/Referrals: Umang Dia MD [Primary Care Provider] - See instructions Activity Restrictions/Add. Instructions Additional Instructions/Restrictions: Drink plenty of fluids. Take tylenol or ibuprofen for pain or fever. Take the medications as directed. Follow up with your regular doctor. GO TO THE ER FOR ANY WORSENING SYMPTOMS The pyridium will make your urine turn orange, this is an expected side effect. It will stain your clothes if it comes into contact with them. We will culture the urine. That will tell what bacteria is causing your infection and which antibiotics will treat it best. Sometimes the first antibiotic we prescribe turns out to not work against different bacteria. So, make sure you follow up within 3 days if you are not getting better. Clinical Impressions Clinical Impression: UTI (urinary tract infection) Stand Alone Forms Stand Alone Forms: Work/School Release Instructions Patient Instructions: Urine Culture, DI for Urinary Tract Infection (UTI), Phenazopyridine Discharge ED Provider: Jose L Rivera [facility] [place] HPI General Stated complaint: RT side lower back pain Time Seen by Provider: 10/08/22 10:41 History of Present Illness Provider Complaint: She c/o low back pain and dysuria for the past 2 days. Related Data Home Medications Medication Instructions Recorded Confirmed levonorgestrel 20 mcg/24 hours (8 intrauterine 05/25/21 09/30/22 yrs) 52 mg intrauterine device (Mirena) fluoxetine 20 mg capsule (Prozac) 20 mg PO DAILY Depression 10/08/22 10/08/22 Previous Rx's Medication Instructions Recorded ergocalciferol (vitamin D2) 1,250 50,000 unit PO QWEEK #14 caps 02/07/22 mcg (50,000 unit) capsule vilazodone 40 mg tablet (Viibryd) 40 mg PO DAILY #30 tabs 07/10/22 sulfamethoxazole 800 1 tab PO BID #14 tabs 09/20/22 mg-trimethoprim 160 mg tablet ciprofloxacin HCl 500 mg tablet 500 mg PO BID 7 days #14 tabs 10/08/22 (Cipro) ondansetron 4 mg disintegrating 4 mg PO Q8H PRN Nausea #12 tabs 10/08/22 tablet phenazopyridine 200 mg tablet 200 mg PO Q8H 2 days #6 tabs 10/08/22 (Pyridium) Allergies Allergy/AdvReac Type Severity Reaction Status Date / Time labetalol [LABETALOL] Allergy Unknown I-ITCHING Verified 10/08/22 10:45 [facility] Disclaimer: The information contained in this section may have been updated after the patient was seen, as this information can be updated by other users. Medical History Abnormal EKG BMI 50.0-59.9, adult Daytime somnolence Generalized anxiety disorder Obesity Palpitations Tachycardia Tobacco dependence syndrome Vitamin D deficiency (~01/05/18) Social History Smoking Status: Former smoker alcohol intake: never substance use type: denies use current occupational status: other Travel in the last 8 weeks: None household members: children housing: apartment number of children: 1 ROS Obtained: Yes All systems reviewed & no additional complaints except as documented Constitutiona
[2022-10-08 10:42] LABS: Apearance,Urine Cloudy (Clear); Color,Urine Dark Yellow (Yellow)
[2022-10-08 10:43] LABS: Bilirubin,Urine Negative (Negative); Blood, Urine 3+ (Negative); Glucose,Urine (UA) Negative (Negative); Ketones,Urine Negative (Negative); Protein,Urine 3+ (Negative)
[2022-10-08 10:44] LABS: UTC Leukocyte Esterase,Urine 2+ (Negative); UTC Nitrate,Urine Positive (Negative); Urobilinogen,Urine 0.2 EU/dl (0.2)
[2022-10-08 11:21] VITALS: BP 142/94; PULSE 102; RESP 20; TEMP 37.1; O2SAT 98
== END 2022-10-08 11:21 | disposition home or self-care (01) ==
PROVIDERS: Emergency Provider Nurse Practitioner Family; PCP Family Medicine
DX: N39.0 Urinary tract infection, site not specified (principal)
CPT/HCPCS: 81003; 87086; 87088; 87186; 99212; 99213; G0463

== ENCOUNTER → 2022-10-15 14:00 | Outpatient (CLI) | payer MEDICAID, SELFPAY | PROVIDERS: PCP Family Medicine; Visit Provider Family Medicine | DX: N39.0 Urinary tract infection, site not specified (principal) | CPT/HCPCS: 87086 ==

== ENCOUNTER → 2022-10-23 07:52 | Outpatient (CLI) | payer MEDICAID, SELFPAY ==
--- NOTE | 2022-10-23 07:52 | CT_ITS ---
FINAL REPORT TECHNIQUE: Axial images through the abdomen and pelvis were performed without contrast. This study was performed with techniques to keep radiation doses as low as reasonably achievable, (ALARA). Individualized dose reduction techniques using automated exposure control or adjustment of mA and/or kV according to the patient's size were employed. CLINICAL HISTORY: right sided flank pain since Sep 2022, blood in urine COMPARISON: 06/19/2019 FINDINGS: Abdomen: The lung bases are clear. The liver parenchyma is homogeneous. The gallbladder is present. The spleen, pancreas, adrenals and kidneys are unremarkable. Pelvis: The appendix is unremarkable. The urinary bladder is unremarkable. An IUD is present within an anteverted uterus. A moderate amount of stool is seen within the sigmoid colon and rectum. There is no pelvic mass or inflammation. IMPRESSION: Moderate constipation. IUD is new since the previous exam. No definite acute inflammatory process. Reviewed, Interpreted and Dictated by José Luis Cooney MD Transcribed by Juani Alvarenga Authenticated and [facility]
== END ==
PROVIDERS: PCP Family Medicine; Visit Provider Student in an Organized Health Care Education/Training Program
DX: R10.9 Unspecified abdominal pain (principal)
CPT/HCPCS: 74176

== ENCOUNTER → 2022-12-12 06:29 | Outpatient (CLI) | payer MEDICAID, SELFPAY ==
[2022-12-12 19:16] LABS: Alanine Aminotransferase 25 U/L (12-78); Albumin Level 4.3 g/dl (3.5-5.0); Albumin/Globulin Ratio 1.6 (1.1-1.8); Alkaline Phosphatase 135 U/L (38-126); Anion Gap 14.1 mEq/L (5-15); Aspartate Amino Transferase 24 U/L (14-36); Bilirubin,Total 0.4 mg/dl (0.2-1.3); Blood Urea Nitrogen 10 mg/dl (7-17); Calcium 8.7 mg/dl (8.4-10.2); Carbon Dioxide 25 mmol/L (22.0-30.0); Chloride 101 mmol/L (98-107); Chol/HDL Ratio 5.1 (1-3.5); Cholesterol 173 mg/dl (140-200); Estimated Glomerular Filt Rate 101 ml/min (>60); GFR (African American) 122 ML/MIN (>60); Globulin 2.7 g/dL (1.3-3.2); Glucose 85 mg/dl (74-100); HDL Cholesterol 34 mg/dl (40-60); Potassium 4.1 mmoL/L (3.5-5.1); Sodium 136 mmol/L (136-145); Triglycerides 144 mg/dl (30-150); VLDL Cholesterol 29 mg/dL (0-40)
[2022-12-12 19:28] LABS: Direct LDL Cholesterol 119.77 mg/dL (100-129)
[2022-12-12 19:33] LABS: Basophils # 0.1 K/mm3 (0-0.2); Basophils % 0.8 % (0.1-2.0); Eosinophils # 0.1 K/mm3 (0.0-0.4); Eosinophils % 0.7 % (0.1-12.0); Hematocrit 47.4 % (37.0-47.0); Hemoglobin 14.6 g/dL (12.2-16.2); Lymphocytes # 2.2 K/mm3 (0.7-4.5); Lymphocytes % 22.5 % (10-50); Mean Corpuscular HGB Conc 30.9 g/dL (31.8-35.4); Mean Corpuscular Hemoglobin 26.8 pg (27.0-31.2); Mean Corpuscular Volume 86.8 fl (81-99); Mean Platelet Volume 8.4 fl (7.4-10.4); Monocytes # 0.6 K/mm3 (0.1-1.0); Monocytes % 6.5 % (1.7-9.3); Neutrophils # 6.6 K/mm3 (1.8-7.8); Neutrophils % 69.6 % (37.0-80.0); Platelet Count 254 K/mm3 (142-424); Red Blood Count 5.46 M/mm3 (4.20-5.40); Red Cell Distribution Width 13.8 % (11.5-17.5); White Blood Count 9.5 K/mm3 (4.8-10.8)
[2022-12-12 19:47] LABS: Thyroid Stimulating Hormone 1.16 uIU/mL (0.465-4.68)
[2022-12-12 20:38] LABS: Hemoglobin A1C 5.2 % (4.0-6.0)
[2022-12-14 15:01] LABS: C-Peptide 4.7 ng/mL (1.1-4.4)
== END ==
PROVIDERS: PCP Family Medicine; Visit Provider Family Medicine
DX: R53.83 Other fatigue (principal); Z79.899 Other long term (current) drug therapy
CPT/HCPCS: 80053; 80061; 83036; 84443; 84681; 85025

== ENCOUNTER → 2023-01-16 20:01 | Outpatient (CLI) | payer MEDICAID, SELFPAY | PROVIDERS: PCP Nurse Practitioner Family; Visit Provider Nurse Practitioner Family | DX: R30.0 Dysuria (principal) | CPT/HCPCS: 87086 ==

== ENCOUNTER 2023-06-25 10:27 | Outpatient (CLI) | payer SELFPAY ==
[2023-06-25 11:37] VITALS: BMI 58.2
== END 2023-06-25 10:51 | disposition home or self-care (01) ==
LOC: UTC.OUT 10:29
PROVIDERS: Visit Provider Nurse Practitioner Family
DX: Z02.1 Encounter for pre-employment examination (principal)

== ENCOUNTER 2023-07-07 13:59 | Emergency (ER) | payer MEDICAID, SELFPAY ==
[2023-07-07 14:25] VITALS: PULSE 94; RESP 18; TEMP 36.9; O2SAT 98; BMI 40.5
[2023-07-07 14:43] LABS: UTC Strep Screen (Rapid) Positive (Negative)
--- NOTE | 2023-07-07 14:55 | EXP.UTC ---
Discharge Plan Disposition Patient Disposition: Home, Self-Care Condition: Good Prescriptions Prescriptions: New penicillin V potassium 500 mg tablet 500 mg PO BID Qty: 20 0RF No Action fluoxetine [Prozac] 40 mg capsule 40 mg PO DAILY Qty: 30 1RF losartan 100 mg tablet 100 mg PO DAILY Qty: 30 1RF Mirena 20 mcg/24 hours (6 yrs) 52 mg intrauterine device 1 device INTRAUTERI ONCE Referrals Follow up/Referrals: Ana Alcazar APRN [Primary Care Provider] - See instructions Activity Restrictions/Add. Instructions Additional Instructions/Restrictions: *Monitor Temp, Over the counter Motrin or Tylenol as directed/as needed Tylenol every 4 hours and Motrin every 6 hours (as long as your family doctor has told you that you can take it) for fever or pain. and straight to ER if unable to lower temp less than 101.0 after medication given *Warm salt water gargles may help to soothe the throat *Throat Lozenges? *Warm fluids like tea with honey may help to soothe the throat? *Sleep elevated *Humidifier/Vaporizer *If you did not take Penicillin shot or was unable to, start taking antibiotic immediately and make sure that you take it for the FULL length of time although you should start to feel better in 24-48 hours *change toothbrush and toothpaste 24-48 hours after starting to take antibiotics so you do not reinfect yourself Monitor Temp. Tylenol and/or Ibuprofen as needed. ER if fever is no less than 101 despite alternating Tylenol and Ibuprofen * Encourage fluids, water, Gatorade, powerade, pedialyte if /toddler/or child *Cold fluids, popsicles and ice cream may feel good on his throat Follow up IMMEDIATELY for new or worsening symptoms or no Noticeable improvement over the next 48-72 hours. 911 for difficulty breathing or swallowing Clinical Impressions Clinical Impression: Strep throat Instructions Patient Instructions: DI for Strep Throat, Strep Throat Discharge ED Provider: Gabriela Galeano [facility] [place] HPI General Stated complaint: SORE THROAT AND COUGH Mode of Arrival: Ambulatory Source of Information: Patient Limitations: No Limitations Time Seen by Provider: 07/07/23 14:55 Description of Symptoms (Recalled from Triage Doc. by RN): sore throat, CARR, and nausea HEENT Symptoms (Recalled from RN notes): Yes Resp Symptoms (Recalled from RN notes): No Skin Symptoms (Recalled from RN notes): No MS Symptoms (Recalled from RN notes): No Functional Status (Recalled from RN notes): n/a History of Present Illness Provider Complaint: Patient states that she has been having sore throat, headache and nausea for the last couple of days and worse today so she came in to get checked her children has strep throat Related Data Home Medications Medication Instructions Recorded Confirmed levonorgestrel 21 mcg/24 hours (8 1 device intrauterine ONCE 05/25/21 07/07/23 yrs) 52 mg intrauterine device (Mirena) Previous Rx's Medication Instructions Recorded fluoxetine 40 mg capsule (Prozac) 40 mg PO DAILY #30 caps 07/01/23 losartan 100 mg tablet 100 mg PO DAILY #30 tabs 07/01/23 penicillin V potassium 500 mg 500 mg PO BID #20 tabs 07/07/23 tablet Allergies Allergy/AdvReac Type Severity Reaction Status Date / Time labetalol [LABETALOL] Allergy Unknown I-ITCHING Verified 07/07/23 14:45 Worker's Comp Is this a Worker's Comp case?: No [facility] Disclaimer: The information contained in this section may have been updated after the patient was seen, as this information can be updated by other users. Medical History (Updated 07/07/23 @ 15:00 by Gabriela Galeano APRN) Abdominal pain Abnormal EKG Chickenpox with other specified complications Cough Daytime somnolence Encounter for IUD removal Generalized anxiety disorder Impetigo Nausea & vomiting Obesity Otitis media Palpitations Piriformis syndrome Strep throat Tachycardia Tobacco dependen
[2023-07-07 15:16] VITALS: BP 140/85; PULSE 94; RESP 18; TEMP 36.9; O2SAT 98
== END 2023-07-07 15:16 | disposition home or self-care (01) ==
PROVIDERS: Emergency Provider Nurse Practitioner; PCP Nurse Practitioner Family
DX: J02.0 Streptococcal pharyngitis (principal); R51.9 Headache, unspecified; F41.9 Anxiety disorder, unspecified; E66.9 Obesity, unspecified; E55.9 Vitamin D deficiency, unspecified; Z87.891 Personal history of nicotine dependence
CPT/HCPCS: 87880; 99212; 99214; G0463

== ENCOUNTER 2023-12-15 11:23 | Emergency (ER) | payer MEDICAID, SELFPAY ==
--- NOTE | 2023-12-15 11:25 | EXP.UTC ---
Discharge Plan Disposition Patient Disposition: Home, Self-Care Condition: Good Prescriptions Prescriptions: New prednisone 10 mg tablet 10 mg PO BID 3 Days Qty: 6 0RF amoxicillin 875 mg tablet 875 mg PO Q12H Qty: 20 0RF [id number] [Bromfed DM] 2-30-10 mg/5 mL Syrup 5 ml PO Q6H PRN (Reason: Cough) Qty: 240 0RF fluconazole 150 mg tablet 150 mg PO ONCE Qty: 1 3RF No Action fluoxetine [Prozac] 20 mg capsule 20 mg PO DAILY Qty: 30 1RF Mirena 20 mcg/24 hours (6 yrs) 52 mg intrauterine device 1 device INTRAUTERI ONCE losartan 100 mg tablet 100 mg PO DAILY Qty: 90 3RF Referrals Follow up/Referrals: Ana Alcazar APRN [Primary Care Provider] - See instructions Activity Restrictions/Add. Instructions Additional Instructions/Restrictions: Drink plenty of fluids. Take tylenol or ibuprofen for pain or fever. Take the medications as directed. Follow up with your regular doctor. GO TO THE ER FOR ANY WORSENING SYMPTOMS Throw your tooth brush away and get a new one. Clinical Impressions Clinical Impression: Strep pharyngitis Stand Alone Forms Stand Alone Forms: Work/School Release Instructions Patient Instructions: Strep Throat, DI for Strep Throat Discharge ED Provider: Jose L Rivera [facility] General Stated complaint: sore throat, neck pain Time Seen by Provider: 12/15/23 11:25 History of Present Illness Provider Complaint: She states that for the past 1 day she has had sore throat, fever, and malaise. Related Data Home Medications Medication Instructions Recorded Confirmed levonorgestrel 21 mcg/24 hours (8 1 device intrauterine ONCE 05/25/21 12/15/23 yrs) 52 mg intrauterine device (Mirena) Previous Rx's Medication Instructions Recorded losartan 100 mg tablet 100 mg PO DAILY #90 tabs 07/15/23 fluoxetine 20 mg capsule (Prozac) 20 mg PO DAILY #30 caps 11/20/23 amoxicillin 875 mg tablet 875 mg PO Q12H #20 tabs 12/15/23 [id number]-[id number] 5 ml PO Q6H PRN Cough #240 mL 12/15/23 2 mg-30 mg-10 mg/5 mL oral syrup (Bromfed DM) fluconazole 150 mg tablet 150 mg PO ONCE 1 dose #1 tab 12/15/23 prednisone 10 mg tablet 10 mg PO BID 3 days #6 tabs 12/15/23 Allergies Allergy/AdvReac Type Severity Reaction Status Date / Time labetalol [LABETALOL] Allergy Unknown I-ITCHING Verified 12/15/23 11:45 [facility] Disclaimer: The information contained in this section may have been updated after the patient was seen, as this information can be updated by other users. Medical History (Updated 12/15/23 @ 11:59 by Jose L Rivera APRN) Strep throat Piriformis syndrome Generalized anxiety disorder Daytime somnolence Tobacco dependence syndrome Palpitations Tachycardia Abnormal EKG Viral syndrome Strep throat Nausea & vomiting Otitis media Impetigo Chickenpox with other specified complications Abdominal pain Encounter for IUD removal UTI (urinary tract infection) Vitamin D deficiency (~01/05/18) Obesity Upper respiratory infection Cough Social History Smoking Status: Former smoker tobacco type: cigarettes packs per day: 1 alcohol intake: never substance use type: denies use current occupational status: other Travel in the last 8 weeks: None household members: children housing: apartment number of children: 1 ROS Obtained: Yes All systems reviewed & no additional complaints except as documented Constitutional Constitutional: Reports chills and Reports fever(s) Eyes Eyes: Denies eye discharge ENT Ears, Nose, Mouth, and Throat: Reports as per HPI Cardiovascular Cardiovascular: Denies chest pain Respiratory Respiratory: Denies chest congestion and Reports cough Gastrointestinal Gastrointestingal: Reports nausea; Denies abdominal pain, constipation, cramping, diarrhea or vomiting Musculoskeletal Musculoskeletal: Denies arthralgias Integumentary/Breasts Skin/Breast: Denies rash Neurologic Neurologic: Denies paresthesias Physical Exam General General appearance: alert and in no apparent distress Head Head exam: atraumatic, normocephalic and normal inspection Eye Eye exam: Present normal appearance, PERRL and EOMI ENT ENT exam: Present mucous membranes moist and normal external ear exam Expanded ENT Exam TM/Canal exam: Bilateral TM: erythema and bulging Nose exam: Absent sinus tenderness Mouth exam: Present normal external inspection; Absent drooling Teeth exam: Present normal inspection Throat exam: Present tonsillar erythema, tonsillomegaly and tonsillar exudate Neck Neck exam: Present normal inspection, full ROM and trachea midline; Absent tenderness, meningismus or lymphadenopathy Chest Chest inspection: Present normal inspection and symmetric chest wall rise; Absent tenderness Respiratory Respiratory exam: Present normal lung sounds bilaterally; Absent respiratory distress, wheezes, stridor or accessory muscle use Cardiovascular Cardiovascular exam: Present regular rate and normal rhythm; Absent systolic murmur or diastolic murmur Abdominal Exam Abdominal exam: Present soft and normal bowel sounds; Absent distention, tenderness, guarding, rebound or rigidity Extremities Exam Extremities exam: Present normal inspection and normal capillary refill; Absent calf tenderness Back Exam Back exam: Present normal inspection and full ROM; Absent tenderness, CVA tenderness (R) or CVA tenderness (L) Neurological Exam Neurological exam: Present alert, oriented X3 and CN II-XII intact Psychiatric Psychiatric exam: Present normal affect and normal mood Skin Skin exam: Present warm, dry, intact and normal color Medical Decision Making Medical Records Medical records reviewed: No I reviewed the patient's medical records. Yonathan Inquiry Pt receiving controlled substance: No Lab Data Lab results reviewed: Yes I reviewed the patient's lab results.
[2023-12-15 11:30] VITALS: BP 141/85; PULSE 93; RESP 18; TEMP 36.9; O2SAT 97; BMI 58.2
[2023-12-15 11:56] LABS: UTC Strep Screen (Rapid) Positive (Negative)
[2023-12-15 12:14] VITALS: BP 141/85; PULSE 93; RESP 18; TEMP 36.9; O2SAT 97
== END 2023-12-15 12:14 | disposition home or self-care (01) ==
PROVIDERS: Emergency Provider Nurse Practitioner Family; PCP Nurse Practitioner Family
DX: J02.0 Streptococcal pharyngitis (principal); R07.0 Pain in throat; R50.9 Fever, unspecified; R53.81 Other malaise; Z87.891 Personal history of nicotine dependence
CPT/HCPCS: 87880; 99212; 99214; G0463

== ENCOUNTER 2023-12-19 18:55 | Outpatient (CLI) | payer MEDICAID, SELFPAY | END 2023-12-19 23:59 | LOC: LAB.DROPOF 18:55 | PROVIDERS: PCP Student in an Organized Health Care Education/Training Program; Visit Provider Student in an Organized Health Care Education/Training Program | DX: R50.9 Fever, unspecified (principal); R05.9 Cough, unspecified; R10.9 Unspecified abdominal pain; Z20.828 Contact with and (suspected) exposure to other viral communicable diseases | CPT/HCPCS: 87635 ==

== ENCOUNTER 2024-02-24 16:31 | Outpatient (CLI) | payer MEDICAID, SELFPAY | END 2024-02-24 23:59 | disposition home or self-care (01) | LOC: LAB 16:33 | PROVIDERS: PCP Nurse Practitioner Family; Visit Provider Student in an Organized Health Care Education/Training Program | DX: Z02.9 Encounter for administrative examinations, unspecified (principal) ==

== ENCOUNTER 2024-02-25 16:07 | Outpatient (CLI) | payer MEDICAID, SELFPAY ==
[2024-02-25 17:07] LABS: Basophils # 0.1 K/mm3 (0-0.2); Basophils % 0.6 % (0.1-2.0); Eosinophils % 0.5 % (0.1-12.0); Hemoglobin 13.4 g/dL (12.2-16.2); Lymphocytes # 2.1 K/mm3 (0.7-4.5); Lymphocytes % 25.3 % (10-50); Mean Corpuscular HGB Conc 32.6 g/dL (31.8-35.4); Mean Corpuscular Hemoglobin 28.7 pg (27.0-31.2); Mean Platelet Volume 8.7 fl (7.4-10.4); Monocytes # 0.3 K/mm3 (0.1-1.0); Neutrophils # 5.8 K/mm3 (1.8-7.8); Neutrophils % 69.6 % (37.0-80.0); Platelet Count 215 K/mm3 (142-424); Red Blood Count 4.66 M/mm3 (4.20-5.40); Red Cell Distribution Width 13.3 % (11.5-17.5); White Blood Count 8.3 K/mm3 (4.8-10.8)
[2024-02-25 17:59] LABS: Hemoglobin A1C 5.3 % (4.0-6.0)
[2024-02-25 18:54] LABS: Alanine Aminotransferase 24 U/L (12-78); Albumin Level 3.9 g/dl (3.5-5.0); Albumin/Globulin Ratio 1.3 (1.1-1.8); Alkaline Phosphatase 101 U/L (38-126); Anion Gap 14.8 mEq/L (5-15); Aspartate Amino Transferase 23 U/L (14-36); Bilirubin,Total 0.5 mg/dl (0.2-1.3); Blood Urea Nitrogen 11 mg/dl (7-17); Carbon Dioxide 24 mmol/L (22.0-30.0); Chloride 100 mmol/L (98-107); Chol/HDL Ratio 5.8 (1-3.5); Cholesterol 190 mg/dl (140-200); Estimated Glomerular Filt Rate 86 ml/min (>60); GFR (African American) 104 ML/MIN (>60); Glucose 105 mg/dl (74-100); HDL Cholesterol 33 mg/dl (40-60); Potassium 3.8 mmoL/L (3.5-5.1); Sodium 135 mmol/L (136-145); Total Protein,Serum 6.9 g/dl (6.3-8.2); Triglycerides 111 mg/dl (30-150); VLDL Cholesterol 22 mg/dL (0-40)
[2024-02-25 19:05] LABS: Direct LDL Cholesterol 125.61 mg/dL (100-129)
[2024-02-25 19:17] LABS: 25-OH Vitamin D, Total < 12.8 ng/mL (30-100)
[2024-02-25 19:25] LABS: Thyroid Stimulating Hormone 1.52 uIU/mL (0.465-4.68)
== END 2024-02-25 23:59 | disposition home or self-care (01) ==
LOC: LAB 16:11
PROVIDERS: PCP Nurse Practitioner Family; Visit Provider Student in an Organized Health Care Education/Training Program
DX: Z13.1 Encounter for screening for diabetes mellitus (principal); Z13.29 Encounter for screening for other suspected endocrine disorder; E55.9 Vitamin D deficiency, unspecified; I10 Essential (primary) hypertension; Z68.43 Body mass index [BMI] 50.0-59.9, adult; E66.9 Obesity, unspecified; Z87.891 Personal history of nicotine dependence
CPT/HCPCS: 36415; 80050; 80053; 80061; 82306; 83036; 84443; 85025

== ENCOUNTER 2024-04-27 13:40 | Outpatient (CLI) | payer MEDICAID, SELFPAY | END 2024-04-27 23:59 | disposition home or self-care (01) | LOC: LAB.DROPOF 04-28 13:31 | PROVIDERS: PCP Student in an Organized Health Care Education/Training Program; Visit Provider Student in an Organized Health Care Education/Training Program | DX: J02.9 Acute pharyngitis, unspecified (principal); Z87.891 Personal history of nicotine dependence | CPT/HCPCS: 87070 ==

== ENCOUNTER 2024-08-22 10:09 | Emergency (ER) | payer MEDICAID, SELFPAY ==
[2024-08-22 11:25] VITALS: BP 131/89; PULSE 71; RESP 18; TEMP 36.8; O2SAT 98; BMI 61.4
[2024-08-22 11:57] LABS: UTC Strep Screen (Rapid) Negative (Negative)
[2024-08-22 11:58] LABS: UTC Influenza A Antigen Negative (Negative); UTC Influenza B Antigen Negative (Negative)
--- NOTE | 2024-08-22 12:13 | EXP.UTC ---
Discharge Plan Disposition Patient Disposition: Home, Self-Care Condition: Good Referrals Follow up/Referrals: Mounika Car PA [Primary Care Provider] - See instructions Activity Restrictions/Add. Instructions Additional Instructions/Restrictions: No sign of a bacterial infection. Likely viral. Viruses can take 7-14 days to run their course. Nasal saline and bulb syringe or nose Cherri to remove nasal drainage to help with nasal congestion. Hard to eat, drink, sleep with nasal congestion so important to keep this cleaned out. Monitor temp. Tylenol or Motrin as needed for pain or fever Encourage fluids, water, Gatorade, Powerade, Pedialyte if /toddler/child Warm salt water gargles Warm fluids Sore throat lozenges Sleep elevated Humidifier/vaporizer Follow-up immediately for new or worsening symptoms or no noticeable improvement over the next 48-72 hours. Clinical Impressions Clinical Impression: Upper respiratory infection, viral Instructions Patient Instructions: DI for Viral Upper Respiratory Infection -- Adult Print Language Print Language: Frisian Discharge ED Provider: Bhavna ([facility])Brielle [facility] [place] HPI General Stated complaint: fever, cough, dizzy Mode of Arrival: Ambulatory Source of Information: Patient Limitations: No Limitations Time Seen by Provider: 08/22/24 12:11 Description of Symptoms (Recalled from Triage Doc. by RN): PATIENT C/O SORE THROAT, COUGH, RUNNY NOSE, FEVER, CHILLS, DIZZINESS, HEADACHE, CHEST CONGESTION, AND WEAKNESS SINCE FRIDAY MORNING HEENT Symptoms (Recalled from RN notes): Yes Resp Symptoms (Recalled from RN notes): Yes Skin Symptoms (Recalled from RN notes): No MS Symptoms (Recalled from RN notes): No Functional Status (Recalled from RN notes): WNL History of Present Illness Provider Complaint: 28-year-old female presents for complaints of sore throat, cough, runny nose, fever, chills, dizziness, headaches, chest congestion, and weakness since morning. Child has same symptoms. Related Data Allergies Allergy/AdvReac Type Severity Reaction Status Date / Time labetalol (LABETALOL) Allergy Unknown I-ITCHING Verified 04/27/24 13:30 Worker's Comp Is this a Worker's Comp case?: No [facility] Disclaimer: The information contained in this section may have been updated after the patient was seen, as this information can be updated by other users. Medical History , [employer]) Fatigue BMI 50.0-59.9, adult HTN (hypertension) Anxiety and depression Strep throat Piriformis syndrome Generalized anxiety disorder Daytime somnolence Tobacco dependence syndrome Palpitations Tachycardia Abnormal EKG Viral syndrome Strep throat Nausea & vomiting Otitis media Impetigo Chickenpox with other specified complications Abdominal pain Encounter for IUD removal UTI (urinary tract infection) Vitamin D deficiency (~01/05/18) Obesity Upper respiratory infection Cough Surgical History , [employer]) No significant past surgical history Family History , [employer]) No significant family history Social History , [employer]) Smoking Status: Former smoker tobacco type: cigarettes packs per day: 1 alcohol intake: never substance use type: denies use current occupational status: other Travel in the last 8 weeks: None household members: children housing: apartment number of children: 1 ROS Obtained: Yes Systems reviewed as appropriate & no additional complaints except as documented Physical Exam General General appearance: alert and in no apparent distress Eye Eye exam: Present normal appearance ENT ENT exam: Present normal exam, normal oropharynx, mucous membranes moist and TM's normal bilaterally Respiratory Respiratory exam: Present normal lung sounds bilaterally Cardiovascular Cardiovascular exam: Present regular rate and normal rhythm Neurological Exam Neurological exam: Present alert and oriented X3 Lymphatic Lymphatic Findings: no adenopathy Medical Decision Making Medical Records Medical records reviewed: Yes I reviewed the patient's medical records. Screening: Per USPSTF and CDC recommendations, given the prevalence of disease in our region, it is our hospital?s policy to screen for HIV and viral Hepatitis for all patients aged 18 and over and those with ongoing risk factors. Yonathan Inquiry Pt receiving controlled substance: No Vital Signs: 08/22/24 11:25 Temperature 98.3 F Temperature Source Oral Pulse Rate [Left Brachial] 71 Respiratory Rate 18 Blood Pressure [Left Arm] 131/89 Blood Pressure Mean [Left Arm] 103 Blood Pressure Source [Left Arm] Automatic Cuff Blood Pressure Position [Left Arm] Sitting 02 Sat by Pulse Oximetry 98 Oxygen Delivery Method Room Air Lab Data Lab results reviewed: Yes I reviewed the patient's lab results. Lab Results 08/22/24 11:16: Influenza Type A Ag Negative, Influenza Type B Ag Negative, Strep Scn Rapid Clinic Negative Orders (Tests/Meds): ORDERS Category Date Time Status Strep Screen Confirmation Stat Micro 08/22/24 11:16 Received
[2024-08-22 12:16] VITALS: BP 131/89; PULSE 71; RESP 18; TEMP 36.8; O2SAT 98
== END 2024-08-22 12:20 | disposition home or self-care (01) ==
PROVIDERS: Emergency Provider Nurse Practitioner Family; PCP Student in an Organized Health Care Education/Training Program
DX: J06.9 Acute upper respiratory infection, unspecified (principal)
CPT/HCPCS: 87635; 87804; 87880; 99213; G0381

== ENCOUNTER 2024-08-26 10:18 | Outpatient (CLI) | payer MEDICAID, SELFPAY ==
--- NOTE | 2024-08-26 10:26 | XR_ITS ---
FINAL REPORT CLINICAL HISTORY: dyspnea COMPARISON: None FINDINGS: Two views of the chest were obtained. The heart size and pulmonary vascularity are within normal limits. The mediastinum is normal. There is a mild right base opacity, favor atelectasis over pneumonia. There is no pneumothorax. The bony thorax is intact. There is a 12 mm left upper lobe nodule, which appears to have a central calcification, favor granuloma. IMPRESSION: Right base opacity, favor atelectasis or pneumonia. Reviewed, Interpreted and Dictated by Henry Olievr III, MD Transcribed by Radha Cruz Authenticated and . [facility]
== END 2024-08-26 23:59 | disposition home or self-care (01) ==
LOC: RAD 10:21
PROVIDERS: PCP Nurse Practitioner Family; Visit Provider Nurse Practitioner Family
DX: R06.00 Dyspnea, unspecified (principal)
CPT/HCPCS: 71046

== ENCOUNTER 2024-09-10 12:18 | Outpatient (CLI) | payer MEDICAID, SELFPAY ==
--- NOTE | 2024-09-10 12:21 | XR_ITS ---
FINAL REPORT CLINICAL HISTORY: persistent cough COMPARISON: 08/26/2024 FINDINGS: CHEST 2 VIEWS PA AND LATERAL The heart is normal in size. The mediastinum is unremarkable. There is abnormal opacity in the right infrahilar region which appears more evident than previous, probably due to acute pneumonia. There is a left perihilar calcified granuloma. There is no pneumothorax. IMPRESSION: Acute pneumonia in the right infrahilar region. Reviewed, Interpreted and Dictated by José Luis Cooney MD Transcribed by Leora Hennessy Authenticated and [facility]
== END 2024-09-10 23:59 | disposition home or self-care (01) ==
LOC: RAD 12:19
PROVIDERS: PCP Student in an Organized Health Care Education/Training Program; Visit Provider Student in an Organized Health Care Education/Training Program
DX: R05.9 Cough, unspecified (principal)
CPT/HCPCS: 71046

== ENCOUNTER 2024-10-22 07:59 | Emergency (ER) | payer MEDICAID, SELFPAY ==
[2024-10-22 08:27] VITALS: BP 146/87; PULSE 77; RESP 19; TEMP 37.1; O2SAT 98; BMI 58.4
[2024-10-22 08:33] LABS: UTC Influenza A Antigen Negative (Negative); UTC Strep Screen (Rapid) Negative (Negative)
[2024-10-22 08:34] LABS: UTC Influenza B Antigen Negative (Negative)
--- NOTE | 2024-10-22 08:34 | EXP.UTC ---
Discharge Plan Disposition Patient Disposition: Home, Self-Care Condition: Good Prescriptions Prescriptions: New gnwogajkzhwvldr-tnznlmwlx-DB [Bromfed DM] 2-30-10 mg/5 mL Syrup 2.5 ml PO Q6H PRN (Reason: Cough) Qty: 120 0RF ondansetron 4 mg Tablet,Disintegrating 4 mg PO Q8H PRN (Reason: Nausea) Qty: 12 0RF No Action Mirena 21 mcg/24hr (up to 8 yrs) 52 mg intrauterine device intrauterine terconazole 0.4 % cream 1 appful vaginal HS 7 Days Qty: 45 0RF sulfamethoxazole-trimethoprim 800-160 mg tablet 1 tab PO BID Qty: 14 0RF hydroxyzine HCl 25 mg tablet 25 mg PO TID PRN (Reason: itching) Qty: 20 0RF fluconazole 150 mg tablet 150 mg PO Q3D Qty: 2 0RF azithromycin [Zithromax Z-Vik] 250 mg tablet See Rx Instructions PO .COMPLEX Qty: 6 0RF Rx Instructions: For 250 mg dose pack: take 500 mg today (day 1), then 250 mg for 4 days (days 2-5) PO Referrals Follow up/Referrals: Mounika Car PA [Primary Care Provider] - See instructions Activity Restrictions/Add. Instructions Additional Instructions/Restrictions: Drink plenty of fluids. Take tylenol or ibuprofen for pain or fever. Take the medications as directed. Follow up with your regular doctor. GO TO THE ER FOR ANY WORSENING SYMPTOMS Clinical Impressions Clinical Impression: Acute viral syndrome, RSV exposure Stand Alone Forms Stand Alone Forms: Work/School Release Instructions Patient Instructions: DI for Viral Syndrome, Ondansetron Print Language Print Language: Citizen Of [place] Discharge ED Provider: Jose L Rivera [facility] General Stated complaint: diarrhea, sore throat, cough Mode of Arrival: Ambulatory Limitations: No Limitations Time Seen by Provider: 10/22/24 08:55 Description of Symptoms (Recalled from Triage Doc. by RN): Patient reports diarrhea, throwing up, sore throat, cough and stomach pains. HEENT Symptoms (Recalled from RN notes): Yes Resp Symptoms (Recalled from RN notes): No Skin Symptoms (Recalled from RN notes): No MS Symptoms (Recalled from RN notes): No Functional Status (Recalled from RN notes): wnl Related Data Home Medications ?Medication ?Instructions ?Recorded ?Confirmed levonorgestrel (Mirena) intrauterine 08/26/24 09/09/24 Previous Rx's ?Medication ?Instructions ?Recorded fluconazole 150 mg tablet 150 mg PO Q3D 2 doses #2 tabs 08/26/24 terconazole 0.4 % vaginal cream 1 appful vaginal HS 7 days #45 09/09/24 grams azithromycin 250 mg tablet See Rx Instructions PO .COMPLEX #6 09/10/24 (Zithromax Z-Vik) tabs hydroxyzine HCl 25 mg tablet 25 mg PO TID PRN itching #20 tabs 09/10/24 sulfamethoxazole 800 1 tab PO BID #14 tabs 09/10/24 mg-trimethoprim 160 mg tablet tqcialxokfbtczr-xcdrlvsuoxgddwr-OH 2.5 ml PO Q6H PRN Cough #120 mL 10/22/24 2 mg-30 mg-10 mg/5 mL oral syrup (Bromfed DM) ondansetron 4 mg disintegrating 4 mg PO Q8H PRN Nausea #12 tabs 10/22/24 tablet Allergies Allergy/AdvReac Type Severity Reaction Status Date / Time labetalol (LABETALOL) Allergy Unknown I-ITCHING Verified 09/09/24 08:15 Worker's Comp Is this a Worker's Comp case?: No [facility] Disclaimer: The information contained in this section may have been updated after the patient was seen, as this information can be updated by other users. Medical History Fatigue BMI 50.0-59.9, adult HTN (hypertension) Anxiety and depression Strep throat Piriformis syndrome Generalized anxiety disorder Daytime somnolence Tobacco dependence syndrome Palpitations Tachycardia Abnormal EKG Viral syndrome Strep throat Nausea & vomiting Otitis media Impetigo Chickenpox with other specified complications Abdominal pain Encounter for IUD removal UTI (urinary tract infection) Vitamin D deficiency (~01/05/18) Obesity Upper respiratory infection Cough Surgical History No significant past surgical history Family History Other No significant family history Social History Smoking Status: Former smoker tobacco type: cigarettes packs per day: 1 alcohol intake: never substance use type: denies use current occupational status: other Travel in the last 8 weeks: None household members: children housing: apartment number of children: 1 Have you lived/traveled outside [place] in past 30 days?: No Contact w/someone who lives/traveled outside [place] past 30 days?: No Exposure to someone with infectious disease in past 14 days?: No Do you have a fever (greater than 100.4 F or 38 C)?: No Have you tested positive for COVID-19: No Exposed to someone with COVID-19 in past 14 days?: No Do you have a sore throat?: Yes Do you have a cough?: Yes Do you have any weakness?: No Do you have any diarrhea?: Yes Are you experiencing any unusual bleeding?: No Do you have any muscle aches/pain?: No Do you have any abdominal pain?: No Are you experiencing loss of taste or smell?: No ROS Obtained: Yes All systems reviewed & no additional complaints except as documented Constitutional Constitutional: Reports chills and Reports fever(s) Eyes Eyes: Denies eye discharge ENT Ears, Nose, Mouth, and Throat: Reports as per HPI Cardiovascular Cardiovascular: Denies chest pain Respiratory Respiratory: Denies chest congestion and Reports cough Gastrointestinal Gastrointestingal: Reports nausea; Denies abdominal pain, constipation, cramping, diarrhea or vomiting Musculoskeletal Musculoskeletal: Denies arthralgias Integumentary/Breasts Skin/Breast: Denies rash Neurologic Neurologic: Denies paresthesias Physical Exam General General appearance: alert and in no apparent distress Head Head exam: atraumatic, normocephalic and normal inspection Eye Eye exam: Present normal appearance, PERRL and EOMI ENT ENT exam: Present mucous membranes moist and normal external ear exam Expanded ENT Exam TM/Canal exam: Bilateral TM: erythema and bulging Nose exam: Absent sinus tenderness Mouth exam: Present normal external inspection; Absent drooling Teeth exam: Present normal inspection Throat exam: Present tonsillar erythema, tonsillomegaly and tonsillar exudate Neck Neck exam: Present normal inspection, full ROM and trachea midline; Absent tenderness, meningismus or lymphadenopathy Chest Chest inspection: Present normal inspection and symmetric chest wall rise; Absent tenderness Respiratory Respiratory exam: Present normal lung sounds bilaterally; Absent respiratory distress, wheezes, stridor or accessory muscle use Cardiovascular Cardiovascular exam: Present regular rate and normal rhythm; Absent systolic murmur or diastolic murmur Abdominal Exam Abdominal exam: Present soft and normal bowel sounds; Absent distention, tenderness, guarding, rebound or rigidity Extremities Exam Extremities exam: Present normal inspection and normal capillary refill; Absent calf tenderness Back Exam Back exam: Present normal inspection and full ROM; Absent tenderness, CVA tenderness (R) or CVA tenderness (L) Neurological Exam Neurological exam: Present alert, oriented X3 and CN II-XII intact Psychiatric Psychiatric exam: Present normal affect and normal mood Skin Skin exam: Present warm, dry, intact and normal color Medical Decision Making Medical Records Medical records reviewed: No I reviewed the patient's medical records. Screening: Per USPSTF and CDC recommendations, given the prevalence of disease in our region, it is our hospital?s policy to screen for HIV and viral Hepatitis for all patients aged 18 and over and those with ongoing risk factors. Yonathan Inquiry Pt receiving controlled substance: No Vital Signs: 10/22/24 08:27 Temperature 98.7 F Temperature Source Oral Pulse Rate [Radial] 77 Respiratory Rate 19 Blood Pressure [Right Arm] 146/87 H Blood Pressure Mean [Right Arm] 106 Blood Pressure Source [Right Arm] Automatic Cuff Blood Pressure Position [Right Arm] Sitting 02 Sat by Pulse Oximetry 98 Oxygen Delivery Method Room Air Lab Data Lab results reviewed: Yes I reviewed the patient's lab results. Lab Results 10/22/24 08:18: Strep Scn Rapid Clinic Negative Orders (Tests/Meds): ORDERS Category Date Time Status Chest XR 2 view (NOT portable) [XR chest 2V] Stat Exams 10/22/24 08:30 Ordered Strep Screen Confirmation Stat Micro 10/22/24 08:18 Received
[2024-10-22 08:54] LABS: UTC Pregnancy Test, Urine Negative (Negative)
[2024-10-22 08:57] VITALS: BP 146/87; PULSE 77; RESP 19; TEMP 37.1; O2SAT 98
[2024-10-22 09:01] LABS: Coronavirus 19, PCR Not Detected (NotDetected); Human Rhinovirus Not Detected (NotDetected); Influenza A, PCR Not Detected (NotDetected); Influenza B, PCR Not Detected (NotDetected); Respiratory Syncytial Virus Not Detected (NotDetected)
== END 2024-10-22 09:00 | disposition home or self-care (01) ==
PROVIDERS: Emergency Provider Nurse Practitioner Family; PCP Student in an Organized Health Care Education/Training Program
DX: B34.9 Viral infection, unspecified (principal); Z20.828 Contact with and (suspected) exposure to other viral communicable diseases
CPT/HCPCS: 81025; 87631; 87804; 87880; 99212; G0381

== ENCOUNTER 2024-11-04 15:26 | Outpatient (CLI) | payer MEDICAID, SELFPAY ==
[2024-11-04 13:11] LABS: Coronavirus 19, PCR Not Detected (NotDetected); Human Rhinovirus Not Detected (NotDetected); Influenza A, PCR Not Detected (NotDetected); Influenza B, PCR Not Detected (NotDetected); Respiratory Syncytial Virus Not Detected (NotDetected)
== END 2024-11-04 23:59 | disposition home or self-care (01) ==
LOC: LAB.DROPOF 15:27
PROVIDERS: PCP Nurse Practitioner Family; Visit Provider Nurse Practitioner Family
DX: R05.9 Cough, unspecified (principal); J02.9 Acute pharyngitis, unspecified; R09.81 Nasal congestion; R51.9 Headache, unspecified; H92.03 Otalgia, bilateral; R50.9 Fever, unspecified; R19.7 Diarrhea, unspecified; Z72.0 Tobacco use
CPT/HCPCS: 87070; 87631

== ENCOUNTER 2024-11-28 14:12 | Emergency (ER) | payer MEDICAID, SELFPAY ==
[2024-11-28 14:16] VITALS: BP 143/97; PULSE 106; RESP 18; TEMP 37.1; O2SAT 99; BMI 59.9
[2024-11-28 14:27] LABS: Coronavirus 19, PCR Not Detected (NotDetected); Influenza A, PCR Not Detected (NotDetected); Influenza B, PCR Not Detected (NotDetected)
--- NOTE | 2024-11-28 14:44 | HMH.EDGENADL ---
Discharge Plan Disposition Patient Disposition: Home, Self-Care Prescriptions Prescriptions: New ondansetron 4 mg tablet,disintegrating 4 mg PO Q6H PRN (Reason: nausea and vomiting) 5 Days Qty: 20 0RF No Action Mirena 21 mcg/24hr (up to 8 yrs) 52 mg intrauterine device intrauterine promethazine-DM 6.25-15 mg/5 mL syrup 5 ml PO Q4-6H PRN (Reason: cough) Qty: 118 0RF ondansetron 4 mg Tablet,Disintegrating 4 mg PO Q8H PRN (Reason: Nausea) Qty: 12 0RF Referrals Follow up/Referrals: Ana Alcazar APRN [Primary Care Provider] - See instructions Activity Restrictions/Add. Instructions Additional Instructions/Restrictions: No emergent medical condition identified. Your CT scan did not demonstrate any emergent medical condition nor did your labs. There is evidence of enteritis which is consistent with your diarrhea that you are feeling is possible that a viral syndrome caused your symptoms today. You have been prescribed nausea medicine please drink plenty of fluids and return with any significant worsening of your symptoms. If your symptoms persist in association with eating you may follow-up with a cassandra architect or general surgeon to look further into gallbladder pathology or peptic ulcer disease as we discussed. This should be self-limiting however meaning it should go away on its own. Clinical Impressions Clinical Impression: Abdominal pain, RUQ, Nausea, Diarrhea Stand Alone Forms Stand Alone Forms: Work/School Release Instructions Patient Instructions: DI for Acute Abdominal Pain Print Language Print Language: Citizen Of [place] Discharge ED Provider: Harmeet Matthews General Adult HPI <Harmeet Matthews MD - Last Filed: 11/28/24 16:25> General Chief complaint: Abdominal Pain Stated complaint: abd. pain, diarrhea, dizziness, headache Time Seen by Provider: 11/28/24 14:27 Mode of Arrival: Ambulatory Source of Information: Patient Description of Symptoms (Recalled from ER Triage Doc. by RN): Pt presents for evaluation of RUQ abdominal pain that started last night. Pt states she has had diarreha, headache, and nausea. Reports having a fever earlier today of 101, did not take any medications. Pt states she has had a decreased appetite. Pt states pain radiates to her back, and rates pain as a 9/10. Pt states pain comes and goes, and still has her gallbladder History of Present Illness HPI narrative: Katherine Morales is a 29F female with a history of hypertension who presents to the emergency department for complaints of right upper quadrant pain. Patient states that she ate dinner around 7 PM last night and then woke up with right upper quadrant abdominal pain and nausea at approximately 1 AM. She states that she has not vomited but is felt like she needs to. She notes diarrhea that is nonbloody since the pain began. She states that the pain radiates around to her right flank and upper back slightly. She states that she has never had issues with her gallbladder that she is aware of. She denies any urinary symptoms but does note that last week her urine was dark but she has been drinking plenty of water and it has cleared up Related Data Home Medications ?Medication ?Instructions ?Recorded ?Confirmed levonorgestrel (Mirena) intrauterine 08/26/24 11/04/24 Previous Rx's ?Medication ?Instructions ?Recorded ondansetron 4 mg disintegrating 4 mg PO Q8H PRN Nausea #12 tabs 10/22/24 tablet promethazine-DM 6.25 mg-15 mg/5 mL 5 ml PO Q4-6H PRN cough #118 mL 11/04/24 oral syrup ondansetron 4 mg disintegrating 4 mg PO Q6H PRN nausea and 11/28/24 tablet vomiting 5 days #20 tabs Allergies Allergy/AdvReac Type Severity Reaction Status Date / Time labetalol (LABETALOL) Allergy Unknown I-ITCHING Verified 09/09/24 08:15 [facility] <Harmeet Matthews MD - Last Filed: 11/28/24 16:25> [facility] Disclaimer: The information contained in this section may have been updated after the patient was seen, as this information can be updated by other users. Medical History (Updated 11/28/24 @ 16:25 by Harmeet Matthews MD) Vaginal yeast infection Strep pharyngitis Upper respiratory infection, viral Left otitis media COVID-19 Dyspnea Acute effusion of both middle ears RSV exposure Fatigue BMI 50.0-59.9, adult HTN (hypertension) Anxiety and depression Strep throat Piriformis syndrome Generalized anxiety disorder Daytime somnolence Tobacco dependence syndrome Palpitations Tachycardia Abnormal EKG Viral syndrome Strep throat Nausea & vomiting Otitis media Impetigo Chickenpox with other specified complications Abdominal pain Encounter for IUD removal UTI (urinary tract infection) Vitamin D deficiency (~01/05/18) Obesity Upper respiratory infection Cough Surgical History No significant past surgical history Family History Other No significant family history Social History (Updated 11/04/24 @ 10:20 by Kelsi Daugherty CMA) Smoking Status: Current every day smoker tobacco type: cigarettes packs per day: 1 alcohol intake: never substance use type: denies use current occupational status: employed Travel in the last 8 weeks: None household members: children housing: apartment number of children: 1 Have you lived/traveled outside US in past 30 days?: No Contact w/someone who lives/traveled outside US past 30 days?: No Exposure to someone with infectious disease in past 14 days?: No Do you have a fever (greater than 100.4 F or 38 C)?: No Have you tested positive for COVID-19: No Exposed to someone with COVID-19 in past 14 days?: No Do you have a sore throat?: No Do you have a cough?: No Do you have any weakness?: No Do you have any diarrhea?: Yes Are you experiencing any unusual bleeding?: No Do you have any muscle aches/pain?: No Do you have any abdominal pain?: Yes Are you experiencing loss of taste or smell?: No Other Medical History Have you received the Flu Vaccine for this season: No Have you received the Pneumonia Vaccine: No <Harmeet Matthews MD - Last Filed: 11/28/24 16:25> ROS Obtained: Yes Systems reviewed as appropriate & no additional complaints except as documented Physical Exam <Harmeet Matthews MD - Last Filed: 11/28/24 16:25> General General appearance: alert and in no apparent distress Comment: Appears uncomfortable, holding her right upper quadrant with her right hand Head Head exam: atraumatic Eye Eye exam: Present normal appearance ENT ENT exam: Present normal external ear exam Neck Neck exam: Present full ROM Chest Chest inspection: Present symmetric chest wall rise Respiratory Respiratory exam: Present normal lung sounds bilaterally; Absent respiratory distress, wheezes or stridor Cardiovascular Cardiovascular exam: Present regular rate and normal rhythm Abdominal Exam Abdominal exam: Present soft, tenderness (Right upper quadrant and epigastric) and guarding (Right upper quadrant); Absent distention or rigidity Extremities Exam Extremities exam: Present normal inspection Back Exam Back exam: Present normal inspection Neurological Exam Neurological exam: Present alert and oriented X3 Psychiatric Psychiatric exam: Present normal affect Skin Skin exam: Present warm and dry Medical Decision Making <Harmeet Matthews MD - Last Filed: 11/28/24 16:25> Medical Records Screening: Per USPSTF and CDC recommendations, given the prevalence of disease in our region, it is our hospital?s policy to screen for HIV and viral Hepatitis for all patients aged 18 and over and those with ongoing risk factors. Yonathan Inquiry Pt receiving controlled substance: No Vital Signs: 11/28/24 14:16 11/28/24 16:25 Temperature 98.7 F 98.7 F Temperature Source Temporal Artery Scan Oral Pulse Rate 87 Pulse Rate [Right] 106 H Respiratory Rate 18 14 Blood Pressure 121/65 Blood Pressure [Right Arm] 143/97 H Blood Pressure Mean [Right Arm] 112 Blood Pressure Source Automatic Cuff Blood Pressure Source [Right Arm] Automatic Cuff Blood Pressure Position Sitting Blood Pressure Position [Right Arm] Sitting 02 Sat by Pulse Oximetry 99 98 Oxygen Delivery Method Room Air Room Air Lab Data Lab Results 11/28/24 14:20: SARS-CoV-2 (PCR) Not detected, Influenza A Untype (PCR) Not detected, Influenza Type B (PCR) Not detected 11/28/24 14:25: Urine Color Yellow, Urine Appearance Clear, Urine pH 7.0, Ur Specific [place] 1.020, Urine Protein Negative, Urine Glucose (UA) Negative, Urine Ketones Negative, Urine Blood Negative, Urine Nitrate Negative, Urine Bilirubin Negative, Urine Urobilinogen 0.2, Ur Leukocyte Esterase Negative, Urine RBC None, Urine WBC Occasional, Ur Squamous Epith Cells 3-5, Urine Bacteria Trace 11/28/24 14:53: WBC 10.0, RBC 5.12, Hgb 14.1, Hct 43.4, MCV 84.8, MCH 27.5, MCHC 32.5, RDW 12.3, Plt Count 195, MPV 10.3, Neut % (Auto) 83.6 H, Lymph % (Auto) 9.8 L, Sharkey % (Auto) 6.1, Eos % (Auto) 0.2, Baso % (Auto) 0.1, Neut # (Auto) 8.4 H, Lymph # (Auto) 1.0, Sharkey # (Auto) 0.6, Eos # (Auto) 0.0, Baso # (Auto) 0.0, Sodium 136, Potassium 3.8, Chloride 101, Carbon Dioxide 26, Anion Gap 12.8, BUN 9, Creatinine 0.70, Estimated Creat Clear 108, Estimated GFR 100, Est GFR ( Amer) 121, Glucose 97, Lactate 1.0, Calcium 9.1, Total Bilirubin 0.6, AST 22, ALT 23, Alkaline Phosphatase 108, Total Protein 7.2, Albumin 4.4, Globulin 2.8, Albumin/Globulin Ratio 1.6, Lipase 45, Serum HCG, Qual Negative, HCV Ab HONORIO w/Rflx PCR Qn Negative, HIV Ag/Ab Combo Qual Negative 11/28/24 14:53 11/28/24 14:53 Orders (Tests/Meds): ED MEDICATIONS Generic Name Dose Route Start Last Admin Trade Name Freq PRN Reason Stop Dose Admin Sodium Chloride 10 ml 11/28/24 15:51 Sodium Chloride 0.9% 10ml Syr (Rad Only) IV 12/28/24 15:50 NEEDED PRN Maintain IV Site Discontinued Medications Generic Name Dose Route Start Last Admin Trade Name Freq PRN Reason Stop Dose Admin Iopamidol 75 ml 11/28/24 15:48 11/28/24 15:48 Iopamidol-370 (76%);100ml Bottle IV 11/28/24 15:49 75 ml ONCE ONE Administration Iopamidol 75 ml 11/28/24 15:51 11/28/24 15:52 Iopamidol-370 (76%);100ml Bottle IV 11/28/24 15:52 Not Given ONCE ONE Morphine Sulfate 4 mg 11/28/24 14:39 11/28/24 15:00 Morphine 4mg/Ml Syringe IV 11/28/24 14:40 4 mg ONCE ONE Administration Ondansetron HCl 4 mg 11/28/24 14:39 11/28/24 15:00 Ondansetron 4mg/2ml Vial IV 11/28/24 14:40 4 mg ONCE ONE Administration Sodium Chloride 10 ml 11/28/24 15:48 11/28/24 15:48 Sodium Chloride 0.9% 10ml Syr (Rad Only) IV 11/28/24 15:49 10 ml ONCE ONE Administration ORDERS Category Date Time Status CT abdomen pelvis w con Stat Cat Scan 11/28/24 14:46 Completed POCUS Point of Care (ER Only) Stat Exams 11/28/24 14:48 Taken CBC w/Auto Diff [Complete Blood Count Auto Diff] Stat Lab 11/28/24 14:53 Completed CMP [Comprehensive Metabolic Panel] Stat Lab 11/28/24 14:53 Completed HIV Combo Stat Lab 11/28/24 14:53 Completed Hepatitis C Ab Qual. W/ RFX Stat Lab 11/28/24 14:53 Completed Lactic Acid Stat Lab 11/28/24 14:53 Completed Lipase Stat Lab 11/28/24 14:53 Completed Rapid PCR Covid and Flu A/B Stat Lab 11/28/24 14:20 Completed Serum [HCG Qualitative, Serum] Stat Lab 11/28/24 14:53 Completed UA [Urinalysis and Microscopic] Stat Lab 11/28/24 14:25 Completed Medical Decision Narrative: Katherine Morales is a 29F female with a history of hypertension who presents to the emergency department for complaints of right upper quadrant pain. Patient states that she ate dinner around 7 PM last night and then woke up with right upper quadrant abdominal pain and nausea at approximately 1 AM. She has had some nonbloody diarrhea since the pain began. She states that she has not vomited but is felt like she needs to. She states that the pain radiates around to her right flank and upper back slightly. She states that she has never had issues with her gallbladder that she is aware of. She denies any urinary symptoms but does note that last week her urine was dark but she has been drinking plenty of water and it has cleared up. On arrival, patient is mildly tachycardic with a heart rate of 106 bpm, mildly hypertensive with blood pressure 143/97, afebrile with temperature of 98.7 ?F. Physical exam, as stated above, reveals an overall nontoxic-appearing female but appears mildly ill. She is holding her right upper quadrant with her right hand. She has right upper quadrant and epigastric tenderness on palpation with mild guarding but abdomen is nonperitonitic. Remainder of her physical exam is grossly unremarkable. Differential diagnosis includes, but is not limited to: Acute cholecystitis, choledocholithiasis, peptic ulcer disease, gastritis, acute pancreatitis, among others. Workup in the emergency department included: POCUS right upper quadrant ultrasound, CBC, CMP, lipase, urinalysis, serum test, flu/COVID swab. Patient's symptoms were treated with 4 mg of IV morphine and 4 mg of IV Zofran. [id number] ultrasound was attempted, however no reliable views of the gallbladder liver were able to be obtained secondary to body habitus but she did have positive sonographic Castro sign, raising suspicion for acute cholecystitis. Will obtain CT abdomen pelvis with IV contrast at this time to evaluate further. Lab work interpreted by me personally. No elevation in LFTs or bilirubin. No leukocytosis. Lipase within normal limits. Negative test. Urinalysis without evidence of infection. Flu/COVID swab negative CT abdomen pelvis with IV contrast was reviewed by me personally prior to official radiology read. No evidence of acute cholecystitis, no biliary sludge or cholelithiasis. No other acute findings within the abdomen or pelvis on my interpretation. Patient's care transferred to the oncoming physician, Dr. Go, pending radiology interpretation of her CT abdomen pelvis with IV contrast. <Adriana Go MD - Last Filed: 11/28/24 16:54> Vital Signs: 11/28/24 14:16 11/28/24 16:25 Temperature 98.7 F 98.7 F Temperature Source Temporal Artery Scan Oral Pulse Rate 87 Pulse Rate [Right] 106 H Respiratory Rate 18 14 Blood Pressure 121/65 Blood Pressure [Right Arm] 143/97 H Blood Pressure Mean [Right Arm] 112 Blood Pressure Source Automatic Cuff Blood Pressure Source [Right Arm] Automatic Cuff Blood Pressure Position Sitting Blood Pressure Position [Right Arm] Sitting 02 Sat by Pulse Oximetry 99 98 Oxygen Delivery Method Room Air Room Air Lab Data Lab results reviewed: Yes I reviewed the patient's lab results. Lab Results 11/28/24 14:20: SARS-CoV-2 (PCR) Not detected, Influenza A Untype (PCR) Not detected, Influenza Type B (PCR) Not detected 11/28/24 14:25: Urine Color Yellow, Urine Appearance Clear, Urine pH 7.0, Ur Specific [place] 1.020, Urine Protein Negative, Urine Glucose (UA) Negative, Urine Ketones Negative, Urine Blood Negative, Urine Nitrate Negative, Urine Bilirubin Negative, Urine Urobilinogen 0.2, Ur Leukocyte Esterase Negative, Urine RBC None, Urine WBC Occasional, Ur Squamous Epith Cells 3-5, Urine Bacteria Trace 11/28/24 14:53: WBC 10.0, RBC 5.12, Hgb 14.1, Hct 43.4, MCV 84.8, MCH 27.5, MCHC 32.5, RDW 12.3, Plt Count 195, MPV 10.3, Neut % (Auto) 83.6 H, Lymph % (Auto) 9.8 L, Sharkey % (Auto) 6.1, Eos % (Auto) 0.2, Baso % (Auto) 0.1, Neut # (Auto) 8.4 H, Lymph # (Auto) 1.0, Sharkey # (Auto) 0.6, Eos # (Auto) 0.0, Baso # (Auto) 0.0, Sodium 136, Potassium 3.8, Chloride 101, Carbon Dioxide 26, Anion Gap 12.8, BUN 9, Creatinine 0.70, Estimated Creat Clear 108, Estimated GFR 100, Est GFR ( Amer) 121, Glucose 97, Lactate 1.0, Calcium 9.1, Total Bilirubin 0.6, AST 22, ALT 23, Alkaline Phosphatase 108, Total Protein 7.2, Albumin 4.4, Globulin 2.8, Albumin/Globulin Ratio 1.6, Lipase 45, Serum HCG, Qual Negative, HCV Ab HONORIO w/Rflx PCR Qn Negative, HIV Ag/Ab Combo Qual Negative Orders (Tests/Meds): ED MEDICATIONS Generic Name Dose Route Start Last Admin Trade Name Freq PRN Reason Stop Dose Admin Sodium Chloride 10 ml 11/28/24 15:51 Sodium Chloride 0.9% 10ml Syr (Rad Only) IV 12/28/24 15:50 NEEDED PRN Maintain IV Site Discontinued Medications Generic Name Dose Route Start Last Admin Trade Name Freq PRN Reason Stop Dose Admin Iopamidol 75 ml 11/28/24 15:48 11/28/24 15:48 Iopamidol-370 (76%);100ml Bottle IV 11/28/24 15:49 75 ml ONCE ONE Administration Iopamidol 75 ml 11/28/24 15:51 11/28/24 15:52 Iopamidol-370 (76%);100ml Bottle IV 11/28/24 15:52 Not Given ONCE ONE Morphine Sulfate 4 mg 11/28/24 14:39 11/28/24 15:00 Morphine 4mg/Ml Syringe IV 11/28/24 14:40 4 mg ONCE ONE Administration Ondansetron HCl 4 mg 11/28/24 14:39 11/28/24 15:00 Ondansetron 4mg/2ml Vial IV 11/28/24 14:40 4 mg ONCE ONE Administration Sodium Chloride 10 ml 11/28/24 15:48 11/28/24 15:48 Sodium Chloride 0.9% 10ml Syr (Rad Only) IV 11/28/24 15:49 10 ml ONCE ONE Administration ORDERS Category Date Time Status CT abdomen pelvis w con Stat Cat Scan 11/28/24 14:46 Completed POCUS Point of Care (ER Only) Stat Exams 11/28/24 14:48 Taken CBC w/Auto Diff [Complete Blood Count Auto Diff] Stat Lab 11/28/24 14:53 Completed CMP [Comprehensive Metabolic Panel] Stat Lab 11/28/24 14:53 Completed HIV Combo Stat Lab 11/28/24 14:53 Completed Hepatitis C Ab Qual. W/ RFX Stat Lab 11/28/24 14:53 Completed Lactic Acid Stat Lab 11/28/24 14:53 Completed Lipase Stat Lab 11/28/24 14:53 Completed Rapid PCR Covid and Flu A/B Stat Lab 11/28/24 14:20 Completed Serum [HCG Qualitative, Serum] Stat Lab 11/28/24 14:53 Completed UA [Urinalysis and Microscopic] Stat Lab 11/28/24 14:25 Completed Medical Decision Narrative: Katherine Morales is a 29F female with a history of hypertension who presents to the emergency department for complaints of right upper quadrant pain. Patient states that she ate dinner around 7 PM last night and then woke up with right upper quadrant abdominal pain and nausea at approximately 1 AM. She has had some nonbloody diarrhea since the pain began. She states that she has not vomited but is felt like she needs to. She states that the pain radiates around to her right flank and upper back slightly. She states that she has never had issues with her gallbladder that she is aware of. She denies any urinary symptoms but does note that last week her urine was dark but she has been drinking plenty of water and it has cleared up. On arrival, patient is mildly tachycardic with a heart rate of 106 bpm, mildly hypertensive with blood pressure 143/97, afebrile with temperature of 98.7 ?F. Physical exam, as stated above, reveals an overall nontoxic-appearing female but appears mildly ill. She is holding her right upper quadrant with her right hand. She has right upper quadrant and epigastric tenderness on palpation with mild guarding but abdomen is nonperitonitic. Remainder of her physical exam is grossly unremarkable. Differential diagnosis includes, but is not limited to: Acute cholecystitis, choledocholithiasis, peptic ulcer disease, gastritis, acute pancreatitis, among others. Workup in the emergency department included: POCUS right upper quadrant ultrasound, CBC, CMP, lipase, urinalysis, serum test, flu/COVID swab. Patient's symptoms were treated with 4 mg of IV morphine and 4 mg of IV Zofran. [id number] ultrasound was attempted, however no reliable views of the gallbladder liver were able to be obtained secondary to body habitus but she did have positive sonographic Castro sign, raising suspicion for acute cholecystitis. Will obtain CT abdomen pelvis with IV contrast at this time to evaluate further. Lab work interpreted by me personally. No elevation in LFTs or bilirubin. No leukocytosis. Lipase within normal limits. Negative test. Urinalysis without evidence of infection. Flu/COVID swab negative CT abdomen pelvis with IV contrast was reviewed by me personally prior to official radiology read. No evidence of acute cholecystitis, no biliary sludge or cholelithiasis. No other acute findings within the abdomen or pelvis on my interpretation. Patient's care transferred to the oncoming physician, Dr. Go, pending radiology interpretation of her CT abdomen pelvis with IV contrast. Reassessment 4:[address] Go took over from Dr. Erickson. CT scan was performed which I personally interpreted which shows no evidence of intra-abdominal or pelvic pathology. Radiology read this is consistent with my interpretation. However they did note slight thickening the gallbladder wall but no evidence of cholecystitis. On serial assessments patient is benign on my evaluation. Labs are also unremarkable. Of note on CT scan radiology did note that there is evidence of enteritis patient has had diarrhea it is possible that this is viral in nature. Nonetheless this is not emergent or showing any evidence of surgical pathology. Cannot rule out peptic ulcer disease. Also hepatobiliary dysfunction not definitively ruled out but no evidence of cholecystitis at this point. Patient is aware of these things and will follow-up with gastroenterology or general surgery if she continues to have postprandial abdominal pain. But this should be self-limiting if the working diagnosis is correct and that it is possibly viral. Return precautions emphasized patient was discharged in stable condition in improved condition. Critical Care <Harmeet Matthews MD - Last Filed: 11/28/24 16:25> Critical Care Time Critical Care Time: No
--- NOTE | 2024-11-28 14:46 | CT_ITS ---
PROCEDURE INFORMATION: Exam: CT Abdomen And Pelvis With Contrast Exam date and time: 11/28/2024 3:47 PM Age: 29 years old Clinical indication: Nausea; Additional info: Ruq pain, nausea, concern for cholecystitis TECHNIQUE: Imaging protocol: Computed tomography of the abdomen and pelvis with contrast. Radiation optimization: All CT scans at this facility use at least one of these dose optimization techniques: automated exposure control; mA and/or kV adjustment per patient size (includes targeted exams where dose is matched to clinical indication); or iterative reconstruction. Contrast material: ISOVUE; Contrast volume: 75 ml; Contrast route: IV; COMPARISON: CT ABDOMEN PELVIS WO CON 10/23/2022 8:06 AM FINDINGS: Liver: Normal. No mass. Gallbladder and biliary ducts: There may be gallbladder wall thickening 3-4 mm. The gallbladder is not distended. No definite gallstones. No pericholecystic inflammatory changes.. Recommend gallbladder ultrasound if clinically indicated. Pancreas: Normal. No ductal dilation. Spleen: Normal. No splenomegaly. Adrenal glands: Normal. No mass. Kidneys and ureters: There is no evidence of renal or ureteral calcifications. Stomach and bowel: Bowel wall thickening in the ileum consistent with enteritis. Series 3, image [id number]. This may be due to infectious or inflammatory etiologies. Appendix: Normal appendix Intraperitoneal space: Unremarkable. No free air. No significant fluid collection. Vasculature: Unremarkable. No abdominal aortic aneurysm. Lymph nodes: Unremarkable. No enlarged lymph nodes. Urinary bladder: Unremarkable as visualized. Reproductive: IUD well-positioned in the uterus Bones/joints: Unremarkable. No acute fracture. Soft tissues: Unremarkable. IMPRESSION: 1. Bowel wall thickening in the ileum consistent with enteritis. Series 3, image [id number]. This may be due to infectious or inflammatory etiologies. 2. There may be gallbladder wall thickening 3-4 mm. The gallbladder is not distended. No definite gallstones. No pericholecystic inflammatory changes.. Recommend gallbladder ultrasound if clinically indicated.
[2024-11-28 14:51] LABS: Microscopic, Urine URINE MICROSCOPIC (MICROSCOPIC)
[2024-11-28] MEDS: MORPHINE 4MG/ML SYRINGE 4 MG IV (15:00)
[2024-11-28] MEDS: ONDANSETRON 4MG/2ML VIAL 4 MG IV (15:00)
[2024-11-28 15:11] LABS: Albumin Level 4.4 g/dl (3.5-5.0); Chloride 101 mmol/L (98-107); Potassium 3.8 mmoL/L (3.5-5.1); Sodium 136 mmol/L (136-145)
[2024-11-28 15:13] LABS: Alanine Aminotransferase 23 U/L (12-78); Basophils % 0.1 % (0.1-2.0); Blood Urea Nitrogen 9 mg/dl (7-17); Creatinine Clearance Estimated 108 mL/min (50-200); Eosinophils % 0.2 % (0.1-12.0); Estimated Glomerular Filt Rate 100 ml/min (>60); GFR (African American) 121 ML/MIN (>60); Hematocrit 43.4 % (37.0-47.0); Hemoglobin 14.1 g/dL (12.2-16.2); Lymphocytes % 9.8 % (10-50); Mean Corpuscular HGB Conc 32.5 g/dL (31.8-35.4); Mean Corpuscular Hemoglobin 27.5 pg (27.0-31.2); Mean Corpuscular Volume 84.8 fl (81-99); Mean Platelet Volume 10.3 fl (7.4-10.4); Monocytes # 0.6 K/mm3 (0.1-1.0); Monocytes % 6.1 % (1.7-9.3); Neutrophils # 8.4 K/mm3 (1.8-7.8); Neutrophils % 83.6 % (37.0-80.0); Platelet Count 195 K/mm3 (142-424); Red Blood Count 5.12 M/mm3 (4.20-5.40); Red Cell Distribution Width 12.3 % (11.5-17.5)
[2024-11-28 15:14] LABS: Albumin/Globulin Ratio 1.6 (1.1-1.8); Alkaline Phosphatase 108 U/L (38-126); Anion Gap 12.8 mEq/L (5-15); Aspartate Amino Transferase 22 U/L (14-36); Bilirubin,Total 0.6 mg/dl (0.2-1.3); Calcium 9.1 mg/dl (8.4-10.2); Carbon Dioxide 26 mmol/L (22.0-30.0); Globulin 2.8 g/dL (1.3-3.2); Glucose 97 mg/dl (74-100); Lipase 45 U/L (23-300); Total Protein,Serum 7.2 g/dl (6.3-8.2)
[2024-11-28 15:25] LABS: HCG Qualitative, Serum Negative (Negative)
[2024-11-28 15:44] LABS: Appearance,Urine Clear (Clear); Bacteria,Urine Trace /lpf; Bilirubin,Urine Negative (Negative); Blood, Urine Negative (Negative); Color,Urine Yellow (Yellow); Glucose,Urine (UA) Negative (Negative); Ketones,Urine Negative (Negative); Leukocyte Esterase,Urine Negative (Negative); Nitrate,Urine Negative (Negative); Protein,Urine Negative (Negative); Urobilinogen,Urine 0.2 EU/dl (0.2); WBC,Urine Occasional #/hpf (0-3)
[2024-11-28] MEDS: SODIUM CHLORIDE 0.9% 10ML SYR (RAD ONLY) 10 ML IV (15:48)
[2024-11-28] MEDS: IOPAMIDOL-370 (76%);100ML BOTTLE 75 ML IV (15:48)
--- NOTE | 2024-11-28 15:48 | PC.NURSE ---
pt gone to xray
[2024-11-28 16:12] LABS: HIV Combo NEGATIVE (Negative)
[2024-11-28 16:21] LABS: Hepatitis C Ab Qual. W/ RFX NEGATIVE (Negative)
[2024-11-28 16:25] VITALS: BP 121/65; PULSE 87; RESP 14; TEMP 37.1; O2SAT 98
[2024-11-28 16:59] VITALS: BP 99/78; PULSE 79; RESP 18; TEMP 36.8
== END 2024-11-28 16:59 | disposition home or self-care (01) ==
PROVIDERS: Emergency Provider Student in an Organized Health Care Education/Training Program; PCP Nurse Practitioner Family
DX: R10.11 Right upper quadrant pain (principal)
CPT/HCPCS: 74177; 80053; 81001; 83605; 83690; 84703; 85025; 86803; 87389; 87636; 96374; 96375; 99285; J2270; J2405; Q9967

== ENCOUNTER 2024-12-01 09:47 | Emergency (ER) | payer MEDICAID, SELFPAY ==
[2024-12-01 09:55] VITALS: BP 175/83; PULSE 97; RESP 16; TEMP 36.6; O2SAT 99; BMI 59.9
--- NOTE | 2024-12-01 10:39 | PC.NURSE ---
DR OCHOA AT BEDSIDE
[2024-12-01] MEDS: ONDANSETRON 4MG/2ML VIAL 4 MG IV (10:53)
--- NOTE | 2024-12-01 10:53 | PC.NURSE ---
Asked patient is she could give us a UA and a stool sample. Yessica stated that she can not go right now but she can try and get give one in a few minutes.
[2024-12-01] MEDS: LACTATED RINGERS 1000ML 1,000 ML 999 ML IV (10:54)
[2024-12-01 10:57] LABS: Albumin Level 4.6 g/dl (3.5-5.0); Chloride 106 mmol/L (98-107); Potassium 4.2 mmoL/L (3.5-5.1); Sodium 139 mmol/L (136-145)
[2024-12-01 10:59] LABS: Alanine Aminotransferase 38 U/L (12-78); Blood Urea Nitrogen 10 mg/dl (7-17); Creatinine Clearance Estimated 108 mL/min (50-200); Estimated Glomerular Filt Rate 100 ml/min (>60); GFR (African American) 121 ML/MIN (>60)
[2024-12-01 11:00] LABS: Albumin/Globulin Ratio 1.5 (1.1-1.8); Alkaline Phosphatase 85 U/L (38-126); Anion Gap 12.2 mEq/L (5-15); Aspartate Amino Transferase 42 U/L (14-36); Bilirubin,Total 0.5 mg/dl (0.2-1.3); Calcium 9.2 mg/dl (8.4-10.2); Carbon Dioxide 25 mmol/L (22.0-30.0); Globulin 3.1 g/dL (1.3-3.2); Glucose 100 mg/dl (74-100); Lipase 51 U/L (23-300); Total Protein,Serum 7.7 g/dl (6.3-8.2)
--- NOTE | 2024-12-01 11:38 | ED_ITS ---
Discharge Plan Disposition Patient Disposition: Home, Self-Care Condition: Good Prescriptions Prescriptions: No Action Mirena 21 mcg/24hr (up to 8 yrs) 52 mg intrauterine device intrauterine promethazine-DM 6.25-15 mg/5 mL syrup 5 ml PO Q4-6H PRN (Reason: cough) Qty: 118 0RF ondansetron 4 mg Tablet,Disintegrating 4 mg PO Q8H PRN (Reason: Nausea) Qty: 12 0RF ondansetron 4 mg tablet,disintegrating 4 mg PO Q6H PRN (Reason: nausea and vomiting) 5 Days Qty: 20 0RF Referrals Follow up/Referrals: Ana Alcazar APRN [Primary Care Provider] - See instructions Activity Restrictions/Add. Instructions Additional Instructions/Restrictions: You likely have a virus that is causing gastrointestinal issues and will resolve the next several days. Continue to hydrate well by drinking plenty of fluids. Continue to take Zofran for nausea and vomiting. Follow-up with your primary care physician if symptoms do not improve. If you develop any new or worsening symptoms, or if you become concerned for your health for any reason, return to the emergency department for evaluation Clinical Impressions Clinical Impression: Diarrhea, Nausea Instructions Patient Instructions: DI for Diarrhea and Traveler's Diarrhea -- Adult, DI for Diarrhea and Traveler's Diarrhea -- Child, DI for Nausea -- Adult, DI for Nausea -- Child Print Language Print Language: Yakut Discharge ED Provider: Harmeet Matthews Adult HPI General Chief complaint: Nausea/Vomiting/Diarrhea Stated complaint: H/A,V/D, weakness, can't hold down food/liquid Time Seen by Provider: 12/01/24 10:37 Mode of Arrival: Ambulatory Source of Information: Patient Description of Symptoms (Recalled from ER Triage Doc. by RN): Reports that she was seen on Friday for diarrhea, nausea, and weakness. States that it hasn't gotten any better and is really nauseated and unable to really eat or drink. History of Present Illness HPI narrative: Katherine Morales is a 29-year-old female with past medical history of hypertension who presents to the emergency department for complaints of diarrhea and nausea. Patient states that her symptoms began on Friday and was seen at the emergency department at that time and had negative laboratory and CT imaging of her abdomen pelvis at that time. She was diagnosed with viral gastric illness and has been taking Zofran at home. She states that the pain in her abdomen has resolved, she still has some nausea but no vomiting. She states that she is continue to have 2-3 episodes of nonbloody diarrhea daily. She tried to go back to work today and continue to be symptomatic, so they sent her back to the emergency department for evaluation. She reports having a low-grade fever on Friday but none recently. Related Data Home Medications ?Medication ?Instructions ?Recorded ?Confirmed levonorgestrel (Mirena) intrauterine 08/26/24 11/04/24 Previous Rx's ?Medication ?Instructions ?Recorded ondansetron 4 mg disintegrating 4 mg PO Q8H PRN Nausea #12 tabs 10/22/24 tablet promethazine-DM 6.25 mg-15 mg/5 mL 5 ml PO Q4-6H PRN cough #118 mL 11/04/24 oral syrup ondansetron 4 mg disintegrating 4 mg PO Q6H PRN nausea and 11/28/24 tablet vomiting 5 days #20 tabs Allergies Allergy/AdvReac Type Severity Reaction Status Date / Time labetalol (LABETALOL) Allergy Unknown I-ITCHING Verified 09/09/24 08:15 doxycycline Allergy Unknown Verified 12/01/24 09:58 allergy reaction PFSH PFSH Disclaimer: The information contained in this section may have been updated after the patient was seen, as this information can be updated by other users. Medical History (Updated 12/01/24 @ 13:13 by Harmeet Matthews MD) Vaginal yeast infection Strep pharyngitis Upper respiratory infection, viral Left otitis media COVID-19 Dyspnea Acute effusion of both middle ears RSV exposure Fatigue BMI 50.0-59.9, adult HTN (hypertension) Anxiety and depression Strep throat Piriformis syndrome Generalized anxiety disorder Daytime somnolence Tobacco dependence syndrome Palpitations Tachycardia Abnormal EKG Viral syndrome Strep throat Nausea & vomiting Otitis media Impetigo Chickenpox with other specified complications Abdominal pain Encounter for IUD removal UTI (urinary tract infection) Vitamin D deficiency (~01/05/18) Obesity Upper respiratory infection Cough Surgical History No significant past surgical history Family History Other No significant family history Social History (Updated 11/04/24 @ 10:20 by Kelsi Daugherty CMA) Smoking Status: Current every day smoker tobacco type: cigarettes packs per day: 1 alcohol intake: never substance use type: denies use current occupational status: employed Travel in the last 8 weeks: None household members: children housing: apartment number of children: 1 Have you lived/traveled outside US in past 30 days?: No Contact w/someone who lives/traveled outside US past 30 days?: No Exposure to someone with infectious disease in past 14 days?: No Do you have a fever (greater than 100.4 F or 38 C)?: No Have you tested positive for COVID-19: No Exposed to someone with COVID-19 in past 14 days?: No Do you have a sore throat?: No Do you have a cough?: No Do you have any weakness?: Yes Do you have any diarrhea?: Yes Are you experiencing any unusual bleeding?: No Do you have any muscle aches/pain?: No Do you have any abdominal pain?: No Are you experiencing loss of taste or smell?: No Other Medical History Have you received the Flu Vaccine for this season: No Have you received the Pneumonia Vaccine: No ROS Obtained: Yes Systems reviewed as appropriate & no additional complaints except as documented Physical Exam General General appearance: alert and in no apparent distress Head Head exam: atraumatic Eye Eye exam: Present normal appearance ENT ENT exam: Present normal external ear exam Neck Neck exam: Present full ROM Chest Chest inspection: Present symmetric chest wall rise Respiratory Respiratory exam: Present normal lung sounds bilaterally; Absent respiratory distress, wheezes or stridor Cardiovascular Cardiovascular exam: Present regular rate and normal rhythm Abdominal Exam Abdominal exam: Present soft; Absent distention, tenderness, guarding, rebound or rigidity Extremities Exam Extremities exam: Present normal inspection Back Exam Back exam: Present normal inspection Neurological Exam Neurological exam: Present alert and oriented X3 Psychiatric Psychiatric exam: Present normal affect Skin Skin exam: Present warm and dry Medical Decision Making Medical Records Screening: Per USPSTF and CDC recommendations, given the prevalence of disease in our region, it is our hospital?s policy to screen for HIV and viral Hepatitis for all patients aged 18 and over and those with ongoing risk factors. Yonathan Inquiry Pt receiving controlled substance: No Vital Signs: 12/01/24 09:55 12/01/24 13:28 Temperature 97.9 F 98.2 F Temperature Source Oral Pulse Rate 80 Pulse Rate [Radial] 97 H Respiratory Rate 16 18 Blood Pressure 133/78 Blood Pressure [Left Arm] 175/83 H Blood Pressure Mean [Left Arm] 113 Blood Pressure Source [Left Arm] Automatic Cuff Blood Pressure Position [Left Arm] Sitting 02 Sat by Pulse Oximetry 99 Oxygen Delivery Method Room Air Room Air Lab Data Lab Results 12/01/24 10:35: WBC 6.4 D, RBC 5.17, Hgb 14.5, Hct 44.2, MCV 85.5, MCH 28.0, MCHC 32.8, RDW 12.2, Plt Count 239, MPV 10.6 H, Neut % (Auto) 67.0, Lymph % (Auto) 26.2, [place] % (Auto) 6.1, Eos % (Auto) 0.3, Baso % (Auto) 0.2, Neut # (Auto) 4.3, Lymph # (Auto) 1.7, [place] # (Auto) 0.4, Eos # (Auto) 0.0, Baso # (Auto) 0.0, Sodium 139, Potassium 4.2, Chloride 106, Carbon Dioxide 25, Anion Gap 12.2, BUN 10, Creatinine 0.70, Estimated Creat Clear 108, Estimated GFR 100, Est GFR ( Amer) 121, Glucose 100, Calcium 9.2, Total Bilirubin 0.5, AST 42 H D, ALT 38 D, Alkaline Phosphatase 85, Total Protein 7.7, Albumin 4.6, Globulin 3.1, Albumin/Globulin Ratio 1.5, Lipase 51 12/01/24 11:49: Urine HCG, Qual Negative 12/01/24 11:55: Urine Color Yellow, Urine Appearance Clear, Urine pH 6.0, Ur Specific [place] >= 1.030, Urine Protein Negative, Urine Glucose (UA) Negative, Urine Ketones Trace, Urine Blood Negative, Urine Nitrate Negative, Urine Bilirubin Negative, Urine Urobilinogen 0.2, Ur Leukocyte Esterase Negative, Urine RBC None, Urine WBC Occasional, Ur Squamous Epith Cells Occasional, Urine Bacteria 2+ 12/01/24 10:35 12/01/24 10:35 Orders (Tests/Meds): ED MEDICATIONS Discontinued Medications Generic Name Dose Route Start Last Admin Trade Name Freq PRN Reason Stop Dose Admin Lactated Ringer's 1,000 mls @ 999 mls/hr 12/01/24 10:42 12/01/24 10:54 Lactated Ringer's 1000 Ml Bag IV 12/01/24 11:42 999 mls/hr .Q1H1M ONE Administration Ondansetron HCl 4 mg 12/01/24 10:42 12/01/24 10:53 Ondansetron 4mg/2ml Vial IV 12/01/24 10:43 4 mg ONCE ONE Administration ORDERS Category Date Time Status CBC w/Auto Diff [Complete Blood Count Auto Diff] Stat Lab 12/01/24 10:35 Completed CMP [Comprehensive Metabolic Panel] Stat Lab 12/01/24 10:35 Completed Lipase Stat Lab 12/01/24 10:35 Completed UA [Urinalysis and Microscopic] Stat Lab 12/01/24 11:55 Completed Urine , HCG Qual. Stat Lab 12/01/24 11:49 Completed Urine Culture Stat Micro 12/01/24 11:55 Received Medical Decision Narrative: Katherine Morales is a 29-year-old female with past medical history of hypertension who presents to the emergency department for complaints of diarrhea and nausea. Patient states that her symptoms began on Friday and was seen at the emergency department at that time and had negative laboratory and CT imaging of her abdomen pelvis at that time. She was diagnosed with viral gastric illness and has been taking Zofran at home. She states that the pain in her abdomen has resolved, she still has some nausea but no vomiting. She states that she is continue to have 2-3 episodes of nonbloody diarrhea daily. She tried to go back to work today and continue to be symptomatic, so they sent her back to the emergency department for evaluation. She reports having a low-grade fever on Friday but none recently. On arrival, patient is hypertensive with blood pressure 175/83, heart tachycardic at 97 bpm, breathing comfortably on room air with oxygen saturation at 99% SpO2. Afebrile. Physical exam, stated above, and uncomfortable but nontoxic appearing female in no distress. Abdomen is soft, nontender nondistended. Cardiopulmonary exam is unremarkable. Remainder of her physical exam is grossly as well and she appears well-hydrated. Differential diagnosis includes, but is not limited to: Viral gastroenteritis, acute cholecystitis, biliary colic, peptic ulcer disease, IBS, inflammatory bowel disease, among others. Patient was seen in the emergency department for similar symptoms on 11/28/[address] abdomen pelvis at that time with IV contrast. This was reviewed by me personally. Patient had wall thickening at the ileum consistent with enteritis. There may be gallbladder wall thickening 3 to 4 mm. The gallbladder is not distended. No definite gallstones. No. Cholecystic inflammatory changes. At this time, patient states that her abdominal pain has completely resolved and she is nontender on exam. Is felt that her symptomatology is less likely to be biliary/gallbladder related given improvement in the symptoms. Her symptomatology is most consistent with a viral gastroenteritis given her symptoms are more diarrheal in nature at this time more upper abdominal pain and nausea at the initial onset. Additional CT/gallbladder ultrasound were considered, however these were deferred at this time given reasoning as stated above. Will obtain CBC, CMP, lipase, stool cultures if patient is able to have a bowel movement, urinalysis, test, and administer 1 L lactated ringer as well as 4 mg of IV Zofran for symptom relief. Patient's workup showed no leukocytosis, CMP unremarkable nonactionable only mildly elevated AST at 42 but liver enzymes otherwise within normal limits and total bilirubin 3.5. Lipase within normal limits. Urinalysis without evidence of infection. Negative test. On reassessment, patient had no recurrence of her diarrhea was not able to get a stool sample. Given her symptomatic improvement it is felt that she is appropriate for discharge at this time. She was instructed to follow-up with her primary care physician. Return precautions were given. All questions were answered. She demonstrated understanding and was in agreement with this plan. She was then discharged from the emergency department in stable condition. Critical Care Critical Care Time Critical Care Time: No
[2024-12-01 12:02] LABS: Microscopic, Urine URINE MICROSCOPIC (MICROSCOPIC)
[2024-12-01 12:08] LABS: Urine Pregnancy, HCG Qual. Negative (Negative)
[2024-12-01 12:11] LABS: Appearance,Urine CLEAR (Clear); Bilirubin,Urine Negative (Negative); Blood, Urine Negative (Negative); Color,Urine YELLOW (Yellow); Glucose,Urine (UA) Negative (Negative); Ketones,Urine TRACE (Negative); Leukocyte Esterase,Urine Negative (Negative); Nitrate,Urine Negative (Negative); Protein,Urine Negative (Negative); Urobilinogen,Urine 0.2 EU/dl (0.2)
[2024-12-01 12:28] LABS: Bacteria,Urine 2+ /lpf; Specific Gravity, Urine >= 1.030 (1.005-1.030); Squamous Epithelial Cell,Urine Occasional #/hpf (0-5); WBC,Urine Occasional #/hpf (0-3)
[2024-12-01 12:37] LABS: Hematocrit 44.2 % (37.0-47.0); Hemoglobin 14.5 g/dL (12.2-16.2); Red Blood Count 5.17 M/mm3 (4.20-5.40); White Blood Count 6.4 K/mm3 (4.8-10.8)
[2024-12-01 12:38] LABS: Basophils % 0.2 % (0.1-2.0); Eosinophils % 0.3 % (0.1-12.0); Lymphocytes # 1.7 K/mm3 (0.7-4.5); Lymphocytes % 26.2 % (10-50); Mean Corpuscular HGB Conc 32.8 g/dL (31.8-35.4); Mean Corpuscular Volume 85.5 fl (81-99); Mean Platelet Volume 10.6 fl (7.4-10.4); Monocytes # 0.4 K/mm3 (0.1-1.0); Monocytes % 6.1 % (1.7-9.3); Neutrophils # 4.3 K/mm3 (1.8-7.8); Platelet Count 239 K/mm3 (142-424); Red Cell Distribution Width 12.2 % (11.5-17.5)
[2024-12-01 13:28] VITALS: BP 133/78; PULSE 80; RESP 18; TEMP 36.8; O2SAT 98
--- NOTE | 2024-12-03 08:06 | PC.NURSE ---
discussed urine culture with Dr. Trujillo, pt updated about antibiotics and at [facility] pharmacy.
--- NOTE | 2024-12-03 15:05 | CARE MANAGER ---
Spoke with Dr. Chou. Insurance will not pay for initial antibiotic called in. Changed antibiotic to Bactrim DS 800/125mg BID x 5 days. Prescription called to [facility] pharmacy. ANDREW Padilla
== END 2024-12-01 13:30 | disposition home or self-care (01) ==
PROVIDERS: Emergency Provider Student in an Organized Health Care Education/Training Program; PCP Nurse Practitioner Family
DX: R19.7 Diarrhea, unspecified (principal); R11.0 Nausea; R63.8 Other symptoms and signs concerning food and fluid intake; R53.1 Weakness; R51.9 Headache, unspecified; F17.210 Nicotine dependence, cigarettes, uncomplicated
CPT/HCPCS: 80053; 81001; 81025; 83690; 85025; 87086; 87088; 87186; 96361; 96374; 99283; J2405; J7120

== ENCOUNTER 2024-12-03 09:43 | Outpatient (CLI) | payer MEDICAID, SELFPAY ==
[2024-12-03 09:47] LABS: Adenovirus F 40/41, stool Not Detected (NotDetected); Astrovirus Not Detected (NotDetected); Campylobacter Not Detected (NotDetected); Clostridium Difficile A/B, PCR Not Detected (NotDetected); Cryptosporidium Not Detected (NotDetected); Cyclospora Cayetanesis Not Detected (NotDetected); Entamoeba histolytica Not Detected (NotDetected); Enteroaggregative E coli Not Detected (NotDetected); Enteropathogenic E coli Not Detected (NotDetected); Enterotoxigenic E coli Not Detected (NotDetected); Giardia lamblia Not Detected (NotDetected); Norovirus Not Detected (NotDetected); Plesimonas Shigalloides, PCR Not Detected (NotDetected); Rotavirus A Not Detected (NotDetected); Salmonella, PCR Not Detected (NotDetected); Sapovirus Not Detected (NotDetected); Shiga-like toxin E coli Not Detected (NotDetected); Shigella Enterovasive E coli Not Detected (NotDetected); Vibrio Cholerae Not Detected (NotDetected); Vibrio, PCR Not Detected (NotDetected); Yersinia Entercolitica, PCR Not Detected (NotDetected)
== END 2024-12-03 23:59 | disposition home or self-care (01) ==
LOC: LAB 09:43
PROVIDERS: PCP Nurse Practitioner Family; Visit Provider Nurse Practitioner Family
DX: R11.0 Nausea (principal); R19.7 Diarrhea, unspecified; R10.11 Right upper quadrant pain
CPT/HCPCS: 87045; 87507

== ENCOUNTER 2024-12-10 08:20 | Outpatient (CLI) | payer MEDICAID, SELFPAY ==
--- NOTE | 2024-12-10 08:30 | US_ITS ---
FINAL REPORT CLINICAL HISTORY: RUQ pain COMPARISON: None FINDINGS: ULTRASOUND RUQ: Sonographic images of the right upper quadrant were obtained. The pancreas is mostly obscured. There is mild increased echogenicity of the liver consistent with fatty infiltration. The gallbladder appears normal without evidence of gallstones.There is no evidence of biliary ductal dilatation.The common duct measures 4mm. Limited images of the right kidney are unremarkable. IMPRESSION: Mild fatty infiltration of the liver without biliary ductal dilatation. Reviewed, Interpreted and Dictated by José Luis Cooney MD Transcribed by Radha Cruz Authenticated and . [facility]
--- NOTE | 2024-12-10 09:00 | NM_ITS ---
FINAL REPORT CLINICAL HISTORY: RUQ pain FINDINGS: The patient was injected with 8.60 mCi of technetium 99m Choletec and subsequently 3.3 mcg of CCK. Images of the abdomen were obtained for one hour. There is normal distribution of radiopharmaceutical throughout the liver. Sequential images demonstrate progressive accumulation of activity within the gallbladder. There is a calculated ejection fraction of 88%, within normal limits. IMPRESSION: Ejection fraction within normal limits. Reviewed, Interpreted and Dictated by José Luis Cooney MD Transcribed by Harper Jamison Authenticated and [facility]
== END 2024-12-10 23:59 | disposition home or self-care (01) ==
LOC: RAD 08:20
PROVIDERS: PCP Nurse Practitioner Family; Visit Provider Nurse Practitioner Family
DX: R10.11 Right upper quadrant pain (principal); R11.0 Nausea; R19.7 Diarrhea, unspecified
CPT/HCPCS: 76705; 78227

== ENCOUNTER 2025-01-24 08:39 | Outpatient (CLI) | payer MEDICAID, SELFPAY ==
--- NOTE | 2025-01-24 08:46 | XR_ITS ---
FINAL REPORT CLINICAL HISTORY: Lt shoulder pain, nki COMPARISON: None FINDINGS: LEFT SHOULDER 4 views of the left shoulder were obtained. There is no acute fracture or dislocation. Visualized joint spaces are normally aligned. Soft tissues are unremarkable. IMPRESSION: No acute bony abnormality. Reviewed, Interpreted and Dictated by José Luis Cooney MD Transcribed by Radha Cruz Authenticated and [facility]
== END 2025-01-24 23:59 | disposition home or self-care (01) ==
LOC: RAD 08:40
PROVIDERS: PCP Nurse Practitioner Family; Visit Provider Student in an Organized Health Care Education/Training Program
DX: M25.512 Pain in left shoulder (principal)
CPT/HCPCS: 73030

== ENCOUNTER 2025-02-03 12:01 | Outpatient (CLI) | payer MEDICAID, SELFPAY ==
--- NOTE | 2025-02-03 12:06 | XR_ITS ---
FINAL REPORT CLINICAL HISTORY: Cervical neck pain COMPARISON: None FINDINGS: CERVICAL SPINE 3 views of the cervical spine were obtained. No fracture is present. Alignment is normal. No prevertebral soft tissue swelling is seen. Disc heights are well maintained. IMPRESSION: Unremarkable cervical spine series. Reviewed, Interpreted and Dictated by Riki Bal MD Transcribed by Monica De Los Santos Authenticated and [facility]
== END 2025-02-03 23:59 | disposition home or self-care (01) ==
LOC: RAD 12:02
PROVIDERS: PCP Nurse Practitioner Family; Visit Provider Nurse Practitioner Family
DX: M54.2 Cervicalgia (principal)
CPT/HCPCS: 72040

== ENCOUNTER 2025-02-08 10:25 | Outpatient (CLI) | payer MEDICAID, SELFPAY ==
[2025-02-08 11:41] LABS: Basophils % 0.2 % (0.1-2.0); Eosinophils % 0.1 % (0.1-12.0); Hematocrit 43.1 % (37.0-47.0); Immature Granulocytes # 0.03 10^3uL; Immature Granulocytes % 0.4 %; Lymphocytes # 1.5 K/mm3 (0.7-4.5); Mean Corpuscular HGB Conc 32.5 g/dL (31.8-35.4); Mean Corpuscular Hemoglobin 27.9 pg (27.0-31.2); Mean Platelet Volume 10.1 fl (7.4-10.4); Monocytes # 0.4 K/mm3 (0.1-1.0); Monocytes % 4.8 % (1.7-9.3); Neutrophils # 6.5 K/mm3 (1.8-7.8); Neutrophils % 76.5 % (37.0-80.0); Nucleated Red Blood Cells # 0 10^3/uL; Nucleated Red Blood Cells % 0 %; Platelet Count 263 K/mm3 (142-424); Red Blood Count 5.01 M/mm3 (4.20-5.40); Red Cell Distribution Width 12.4 % (11.5-17.5); Red Cell Distribution Width-SD 38.9 fL; White Blood Count 8.5 K/mm3 (4.8-10.8)
[2025-02-08 11:57] LABS: Alanine Aminotransferase 22 U/L (12-78); Albumin Level 4.3 g/dl (3.5-5.0); Alkaline Phosphatase 106 U/L (38-126); Anion Gap 11.3 mEq/L (5-15); Aspartate Amino Transferase 20 U/L (14-36); Bilirubin,Direct 0.1 mg/dl (0.0-0.4); Bilirubin,Indirect 0.4 mg/dL (0.0-0.9); Bilirubin,Total 0.5 mg/dl (0.2-1.3); Bilirubin,Unconjugated 0.4 mg/dL (0.0-1.1); Blood Urea Nitrogen 14 mg/dl (7-17); Calcium 9.1 mg/dl (8.4-10.2); Carbon Dioxide 26 mmol/L (22.0-30.0); Chloride 106 mmol/L (98-107); Chol/HDL Ratio 4.4 (1-3.5); Cholesterol 173 mg/dl (140-200); Estimated Glomerular Filt Rate 100 ml/min (>60); GFR (African American) 121 ML/MIN (>60); Glucose 94 mg/dl (74-100); HDL Cholesterol 39 mg/dl (40-60); Magnesium 1.9 mg/dl (1.6-2.3); Potassium 4.3 mmoL/L (3.5-5.1); Sodium 139 mmol/L (136-145); Triglycerides 100 mg/dl (30-150); VLDL Cholesterol 20 mg/dL (0-40)
[2025-02-08 12:08] LABS: Direct LDL Cholesterol 124.73 mg/dL (100-129)
[2025-02-08 12:15] LABS: Free T4 (Free Thyroxine) 1.05 ng/dl (0.78-2.19)
[2025-02-08 12:28] LABS: Thyroid Stimulating Hormone 1.62 uIU/mL (0.465-4.68)
== END 2025-02-08 23:59 | disposition home or self-care (01) ==
LOC: LAB 10:26
PROVIDERS: PCP Nurse Practitioner Family; Visit Provider Nurse Practitioner
DX: R94.31 Abnormal electrocardiogram [ECG] [EKG] (principal); F17.200 Nicotine dependence, unspecified, uncomplicated; I10 Essential (primary) hypertension; R42 Dizziness and giddiness; R00.0 Tachycardia, unspecified; R00.2 Palpitations
CPT/HCPCS: 36415; 80048; 80061; 80076; 83735; 84439; 84443; 85025; 93270

== ENCOUNTER 2025-03-31 12:55 | Outpatient (CLI) | payer MEDICAID, SELFPAY ==
--- OUTSIDE RECORDS SUMMARY | 2025-03-31 13:02 | XMS_ITS | Clinical Summary ---
Author Organization [facility] Address [address] [place] [address] Care Team Providers Care Workforce Planning Analyst Name Role Phone Brielle Huggins APRN Primary Care Provider [phone] Allergies Active Allergy Reactions Criticality Noted Date Comments Labetalol Unknown - Patient st ates they do not know rxn details Low 12/08/2019 Medications levonorgestrel (Mirena, 52 MG,) 20 MCG/DAY IUD 0 Active ondansetron ODT (Zofran-ODT) 4 MG disintegrating tablet DISSOLVE 1 TABLET IN MOUTH EVERY 8 HOURS NEEDED FOR NAUSEA AND VOMITING 2 Active bisoprolol (Zebeta) 5 MG tabletIndications:P rimary hypertension Take 1 tablet (5 mg total) by mouth 1 (one) time each day. 90 tablet 1 2 Active Active Problems Problem Noted Date Diagnosed Date Morbid obesity with body mass index (BMI) of 40. 0 or higher 08/05/2022 Primary hypertension 08/05/2022 Family History Medical History Relation Name Comments Pulmonary embolism Mother Relation Name Status Comments Mother Social History Tobacco Use Types Packs/Day Years Used Date Smoking Tobacco: Every Day Cigarettes 0.3 8.5 Started: 2016 Smokeless Tobacco: Never Tobacco Cessation:Ready to Q uit: Not Asked; Counseling Given: Not Answered Alcohol Use Standard Drinks/Week Comments Never 0 (1 standard drink = 0.6 oz pur e alcohol) Comments No Sex and Gender Information Value Date Recorded Sex Assigned at Not on file Legal Sex Female 7:41 PM EDT Gender Identity Female 03/26/2022 1:14 PM EDT Sexual Orientation Not on file Last Filed Vital Signs Vital Sign Reading Time Taken Comments Blood Pressure 134/87 08/21/2022 3:11 PM EST Pulse 85 08/21/2022 3:11 PM EST Temperature 36.6 C (97.8 F) 01/06/2020 12:26 PM EDT Respiratory Rate 20 04/20/2020 11:30 AM EDT Oxygen Saturation - - Inhaled Oxygen Concentration - - Weight 156 kg (344 lb 2.2 oz) 08/21/2022 3:11 PM EST Height 165.1 cm (5' 5 ) 08/21/2022 3:11 PM EST Body Mass Index 57.27 08/21/2022 3:11 PM EST Plan of Treatment Health Maintenance Due Date Last Done Comments [facility]-Depression Screening 1996 [facility]-HIV Screening 1996 [facility]-Hepatitis C Screening 1996 [facility]-/Child/Adol SDOH Screenings 1996 [facility]-IPV Vaccines (2 of 3 - 4-dose series) 01/13/2001 12/16/2000 [facility]-Varicella Vaccines (2 of 2 - 2-dose childhood series) 03/10/2001 12/16/2000 [facility]-DTaP,Tdap,and Td Vaccine s (3 - Tdap) 02/17/2008 02/16/2008, 12/16/2000 [facility]- SDOH Screenings 2014 [facility]-Adult SDOH Screenings 2014 [facility]-Hepatitis B Vaccines (1 of 3 - 19+ 3-dose series) 2015 [id number]-01 Vaccine (1 - 2023- season) 2024 [facility]-Influenza Vaccine (#1) 2025 [facility]-Pap Smear 08/05/2025 08/05/2022 [facility]-Zoster Vaccines (1 of 2) 2046 12/16/2000 HPV Vaccines Completed 09/13/2008, 04/20/2008, 02/16/2008 [facility]-Hepatitis A Vaccines Aged Out 09/02/2018 No longer eligible based on patient's age to complete this topic [facility]-Obesity Intervention Completed 022, 08/05/2022 [facility]-HIB Vaccines Aged Out No longer e ligible based on patient's age to complete this topic [facility]-Pneumococcal Vaccine: Pediatrics (0 to 5 Years) and At-Risk Patients (6 to 49 Years) Aged Out No longer eligible b ased on patient's age to complete this topic [facility]-Rotavirus Vaccines Aged Out No lo nger eligible based on patient's age to complete this topic Procedures Procedure Name Priority Date/Time Associated Diagnosis Comments PAP TEST - CYTOLOGY Routine 08/05/2022 1 2:03 PM EST Pap smear for cervical cancer screening from Last 3 Months or Most Recently Relevant to Health Maintenance Results * Pap Test (08/05/2022 12:03 PM EST) Case Report Cytology Case: [id number] Authorizing Provider: Yudelka Wayne APRN, Collected: 08/05/2022 1203 CNM Ordering Location: Obstetrics & Gynecology Received: 08/06/2022 0936 First Screen: Yefri Lucia Specimen: ThinPrep Pap Test, Liquid-Based Cervical/Vaginal, CERVICAL/VAGINAL 08/15/2022 3:12 PM EST [facility] Interpretation NEGATIVE FOR INTRAEPITHELIAL LESION OR MALIGNANCY 08/15/2022 3:12 PM EST [facility] at 1512 EST Specimen Adequacy Satisfactory for evaluation; endocervical/concepcion sformation zone component present. Slide imaged by the ThinPrep Imaging system and selected 22 self reviewed then full manual screening. 08/15/2022 3:12 PM EST [facility] Cervical cytology is a screening test primarily for squamous cancers and precursors and has associated false negative and positive results. New technologies such as liquid based sampling may decrease but will not eliminate all false negative results. Regular screening and follow-up of unexplained clinical signs and symptoms are recommended to minimize false negative results. Please see the ASCCP website (www.asccp.org)fo r followup recommendations. If HPV testing was requested, correlation with the results is suggested (please call Microbiology at [phone] for results). 08/15/2022 3:12 PM EST [facility] Menstrual Status Unknown 08/15/20 3:12 PM EST [facility] Contraceptive History Intrauterine device 08/15/2022 3:12 PM EST [facility] Screening Type Routine Screen 2021 3:12 PM EST [facility] High Risk? No 08/15/2022 3:12 PM EST [facility] HPV Testing Requested? Request HPV testing if ASCUS or LSIL. 08/15/2022 3:12 PM EST [facility] Previous Cancer History No 08/15/2022 3:12 PM EST [facility] Clinical Information Z12.4 - Pap smear for cervical cancer screening [ICD-10-CM] 08/15/2022 3:12 PM EST [facility] Swab Vaginal and cervical cytologic material / Unknown Non-blood Collection / Unknown 08/05/2022 12:03 PM EST 08/06/2022 9:36 AM EST Yudelka Wayne APRN, CN LAB CYTOLOGY ORDERA BLES Final Result Performing Organization Address City/State/[facility] Co de Phone Number [facility] [address] [place] [phone] from Last 3 Months or Most Recently Relevant to Health Maintenance Insurance [employer] Care Teams Workforce Planning Analyst Relationship Specialty Start Date End Date Brielle Huggins APRN [address] [place] [id number] PCP - General 01/26/21
== END 2025-03-31 23:59 | disposition home or self-care (01) ==
PROVIDERS: PCP Nurse Practitioner Family; Visit Provider Nurse Practitioner
DX: M79.641 Pain in right hand (principal); M79.642 Pain in left hand; I10 Essential (primary) hypertension; R42 Dizziness and giddiness; R00.2 Palpitations; R07.9 Chest pain, unspecified; Z68.43 Body mass index [BMI] 50.0-59.9, adult

== ENCOUNTER 2025-04-13 10:18 | Outpatient (CLI) | payer MEDICAID, SELFPAY ==
--- NOTE | 2025-04-13 | CA_ITS ---
APPROVED REPORT Exam: Pharmacologic Technologist: Pamela Ferrell Ht: 5 ft 5 in Wt: 360 lbs BSA: 2.54 m2 HR: 70 bpm BP: 143/89 mmHg Rhythm: NSR Stress Test Details Test: Dobutamine HR Resting HR: 89 bpm Max Heart Rate (APMHR): 192 bpm Max HR Achieved: 154 bpm Target HR (85% APMHR): 163 bpm % of APMHR: 80 Recovery HR: 94 bpm BP Resting BP: 143.0/89.0 mmHg Max BP: 167.0/112.0 mmHg ECG Resting ECG: NSR Stress ECG: < 0.[address] depression Arrhythmia: Atrial runs, PACs, PVCs, ventricular couplets Stress ECG Conclusion Patient underwent stress dobutamine. Ectopy: Atrial runs, PACs, PVCs, ventricular couplets ST changes: None CONCLUSION New ECG changes at peak stress. Stress echo imaging reported elsewhere. Electronically signed by : Virginia Viera MD 04/14/2025 12:05:16
--- OUTSIDE RECORDS SUMMARY | 2025-04-13 10:25 | XMS_ITS | Clinical Summary ---
Author Organization [facility] Address [address] [place] [address] Care Team Providers Care Livestock Feeder Name Role Phone Brielle Huggins APRN Primary Care Provider [phone]- [phone] Allergies Active Allergy Reactions Criticality Noted Date [...] Date Smoking Tobacco: Every Day Cigarettes 0.3 8.6 Started: 2017 Smokeless Tobacco: Never Tobacco Cessation:Ready to Q [...] of 3 - 19+ 3-dose series) 2015 [id number] Vaccine (1 - 2023- season) 2024 [facility]-Influenza [...] 12:03 PM EST) Case Report Cytology Case: [id number] Authorizing Provider: Yudelka Wayne APRN, Collected: 08/05/2022 1203 CNM Ordering Location: Obstetrics & Gynecology Received: 08/06/2022 0936 First Screen: Yefri Lucia Specimen: ThinPrep Pap Test, Liquid-Based Cervical/Vaginal, CERVICAL/VAGINAL 08/15/2022 3:12 PM EST [facility] Interpretation NEGATIVE FOR INTRAEPITHELIAL LESION OR MALIGNANCY 08/15/2022 3:12 PM EST [facility] at 1512 EST Specimen Adequacy Satisfactory for evaluation; endocervical/concepcion sformation zone component present. Slide imaged by the ThinPrep Imaging system and selected 22 self reviewed then full manual screening. 08/15/2022 3:12 PM EST [facility] Cervical cytology is a screening test [...] results is suggested (please call Microbiology at [phone] for results). 08/15/2022 3:12 PM EST [facility] Menstrual Status Unknown 08/15/20 3:12 PM EST [facility] Contraceptive History Intrauterine device 08/15/2022 3:12 PM EST [facility] Screening Type Routine Screen 2021 3:12 PM EST [facility] High Risk? No 08/15/2022 3:12 PM EST [facility] HPV Testing Requested? Request HPV testing if ASCUS or LSIL. 08/15/2022 3:12 PM EST [facility] Previous Cancer History No 08/15/2022 3:12 PM EST [facility] Clinical Information Z12.4 - Pap smear for cervical cancer screening [ICD-10-CM] 08/15/2022 3:12 PM EST [facility] Swab Vaginal and cervical cytologic material / Unknown Non-blood Collection / Unknown 08/05/2022 12:03 PM EST 08/06/2022 9:36 AM EST Yudelka Wayne APRN, CN LAB CYTOLOGY ORDERA BLES Final Result Performing Organization Address City/State/[facility] Co de Phone Number [facility] [address] [place] [phone] from Last 3 Months or Most Recently Relevant to Health Maintenance Insurance [employer] Care Teams Livestock Feeder Relationship Specialty Start Date End Date Brielle Huggins APRN [address] [place] [phone] PCP - General 01/26/21
--- NOTE | 2025-04-13 10:30 | CA_ITS ---
APPROVED REPORT EXAM: Comprehensive 2D, Doppler, and color-flow Echocardiogram Surgical Manager: RT Akanksha(R) Ht: 5 ft 5 in Wt: 360lbs BSA: 2.54 HR: 84 bpm BP: 147/84 mmHg Indications: chest pain Echo Procedure The patient underwent a Pharmacological Stress Test using Dobutamine. Blood pressure, heart rate, and EKG were monitored. An Echocardiogram was performed by health type technician in four stages in quad fashion. At peak stress, four selected images were obtained and placed side by side with resting images for comparison. Stress Test Details HR Resting HR: 84 bpm Max Heart Rate (APMHR): 192 bpm Max HR Achieved: 154 bpm Target HR (85% APMHR): 163 bpm % of APMHR: 80 BP Resting BP: 143/89 mmHg Max BP: 167/112 mmHg ECG Resting ECG: NSR Stress ECG: <0.[address] depression Arrhythmia: PACs, PVCs, atrial runs, ventricular couplets Echo Findings The Pre-Stress Echocardiogram showed normal left ventricular contractility with an estimated Ejection Fraction of about 55%. Normal wall motion in all segments on baseline images. The Post-Stress Echocardiogram showed normal left ventricular contractility with an estimated Ejection Fraction of about 65%. Normal left ventricular size and function with no regional wall motion abnormalities at peak stress. Other Information Study Quality: Adequate Conclusion Good LV systolic augmentation at peak stress. No evidence of wall motion abnormalities at baseline or at peak stress. No evidence of ischemia on stress echo. Electronically signed by : Virginia Viera MD 04/14/2025 12:07:57
[2025-04-13] MEDS: DOBUTAMINE HCL IV (12:14)
[2025-04-13] MEDS: SODIUM CHLORIDE 0.9% IV (12:14)
== END 2025-04-13 23:59 | disposition home or self-care (01) ==
PROVIDERS: PCP Nurse Practitioner Family; Visit Provider Nurse Practitioner
DX: I47.19 Other supraventricular tachycardia (principal); I49.3 Ventricular premature depolarization; I49.1 Atrial premature depolarization
CPT/HCPCS: 93016; 93017; 93018; 93350; J1250

== ENCOUNTER 2025-09-13 16:17 | Outpatient (CLI) | payer MEDICAID, SELFPAY ==
--- NOTE | 2025-09-13 16:19 | XR_ITS ---
PROCEDURE INFORMATION: Exam: XR Chest Exam date and time: 09/13/2025 4:27 PM Age: 30 years old Clinical indication: Condition or disease; Lung condition and disease; Other: Lt upper lung nodule; Additional info: Left upper lung nodule TECHNIQUE: Imaging protocol: Radiologic exam of the chest. Views: 2 views. Total images: 2 COMPARISON: CR XR CHEST 2V 09/10/2024 12:24 PM FINDINGS: Lungs: 1.4 cm left upper lobe nodule is again noted and similar to the prior study. Pleural spaces: No pleural effusion. No pneumothorax. Heart/Mediastinum: No cardiomegaly. Bones/joints: Rightward curvature of the thoracic spine with mild degenerative changes. IMPRESSION: 1. 1.4 cm left upper lobe nodule is again noted and similar to the prior study. Further evaluation with CT scan of the chest is recommended. 2. No acute cardiopulmonary abnormalities.
--- OUTSIDE RECORDS SUMMARY | 2025-09-13 16:20 | XMS_ITS | Clinical Summary ---
Author Organization [facility] Address [address] [place] [address] Care Team Providers Care Change Manager Name Role Phone Brielle Huggins APRN Primary Care Provider +1- [phone] Allergies Active Allergy Reactions Criticality Noted Date [...] Date Smoking Tobacco: Every Day Cigarettes 0.3 9 Started: 2016 Smokeless Tobacco: Never Tobacco Cessation:Ready [...] Date Last Done Comments [facility]-Depression Screening 1996 [facility]-Infant/Child/Adol SDOH Screenings 1996 [facility]-IPV Vaccines (2 of 3 - 4-dose series) 01/13/2001 12/16/2000 [facility]-Varicella Vaccines (2 of 2 - 2-dose childhood series) 03/10/2001 12/16/2000 [facility]-DTaP,Tdap,and Td Vaccines (3 - Tdap) 02/17/2008 02/16/2008, 12/16/2000 [facility]- SDOH Screenings 2014 [facility]-Adult SDOH Screenings 2014 [facility]-Hepatitis B Vaccines (1 of 3 - 19+ 3-dose series) 2015 [id number] Vaccine (1 - season) 2025 [facility]-Influenza Vaccine (#1) 2025 [facility]-Pap Smear 08/05/2025 08/05/2022 [facility]-Zoster Vaccines (1 of 2) 2046 12/16/2000 HPV Vaccines Completed 09/13/2008, 04/20/2008, 02/16/2008 [facility]-Hepatitis A Vaccines Aged Out 09/02/2018 No longer eligible based on patient's age to complete this topic [facility]-HIB Vaccines Aged Out No longer e [...] 12:03 PM EST) Case Report Cytology Case: [id number] Authorizing Provider: Yudelka Wayne APRN, Collected: 08/05/2022 1203 CNM Ordering Location: Obstetrics & Gynecology Received: 08/06/2022 0936 First Screen: Yefri Lucia Specimen: ThinPrep Pap Test, Liquid-Based Cervical/Vaginal, CERVICAL/VAGINAL 08/15/2022 3:12 PM EST [facility] Interpretation NEGATIVE FOR INTRAEPITHELIAL LESION OR MALIGNANCY 08/15/2022 3:12 PM EST [facility] at 1512 EST Specimen Adequacy Satisfactory for evaluation; endocervical/concepcion sformation zone component present. Slide imaged by the ThinPrep Imaging system and selected 22 self reviewed then full manual screening. 08/15/2022 3:12 PM EST [facility] Cervical cytology is a screening test [...] results is suggested (please call Microbiology at [phone] for results). 08/15/2022 3:12 PM EST [facility] Menstrual Status Unknown 08/15/20 3:12 PM EST [facility] Contraceptive History Intrauterine device 08/15/2022 3:12 PM EST [facility] Screening Type Routine Screen 2021 3:12 PM EST [facility] High Risk? No 08/15/2022 3:12 PM EST [facility] HPV Testing Requested? Request HPV testing if ASCUS or LSIL. 08/15/2022 3:12 PM EST [facility] Previous Cancer History No 08/15/2022 3:12 PM EST [facility] Clinical Information Z12.4 - Pap smear for cervical cancer screening [ICD-10-CM] 08/15/2022 3:12 PM EST [facility] Swab Vaginal and cervical cytologic material / Unknown Non-blood Collection / Unknown 08/05/2022 12:03 PM EST 08/06/2022 9:36 AM EST Yudelka Wayne APRN, CNM LAB CYTOLOGY ORDERA BLES Final Result [facility] [address] [place] [phone] from Last 3 Months or Most Recently Relevant to Health Maintenance [place] [address] [place] [address] MEDICAID Care Teams Change Manager Relationship Specialty Start Date End Date Brielle Huggins APRN [address] [place] [phone] PCP - General 01/26/21
== END 2025-09-13 23:59 | disposition home or self-care (01) ==
LOC: RAD 16:18
PROVIDERS: PCP Nurse Practitioner Family; Visit Provider Nurse Practitioner Family
DX: R91.1 Solitary pulmonary nodule (principal)
CPT/HCPCS: 71046